=== PATIENT | female | born 1940 | race Caucasian/White ===

== ENCOUNTER → 2017-02-27 | Outpatient (CLI) | payer MEDICARE, OTHER ==
[~2017-02-27] MED LIST: ACIP20TA19 PO; ALBU1AER INH; ALPR0.25 PO; ASPI81TA82 PO; ATEN-102 PO; COZA50TA PO; HYDR12.56 PO; LEXA10TA PO; LYRI50CA2 PO; MAGN500T4 PO; MONT5CHW2 CHEW; NAPR220T95 PO; PERC10TA27 PO; SIMV20 PO; ZOLP10TA3 PO
[2017-02-27 11:58] LABS: ANION GAP 8 MEQ/L (5-15); AST (GOT) 21 U/L (15-37); BLOOD UREA NITROGEN 24 MG/DL (7-18); CHLORIDE 101 MEQ/L (98-107); GLOMERULAR FILTRATION RATE 47 ML/MIN (>89); GLUCOSE,FASTING 85 MG/DL (74-99); POTASSIUM 4.3 MEQ/L (3.5-5.1); SODIUM (NA) 137 MEQ/L (136-145)
[2017-02-27 12:02] LABS: ALKALINE PHOSPHATASE 79 U/L (45-117); ALT (GPT) 19 U/L (10-53); HDL CHOLESTEROL 46.2 MG/DL (40.0-60.0); LDL CHOLESTEROL 59 MG/DL (0-99); LDL CHOLESTEROL DIRECT 65 MG/DL (0-99); TOTAL BILIRUBIN ADULT 0.3 MG/DL (0.2-1.0)
[2017-02-27 12:06] LABS: AUTOMATED NEUTROPHIL # 5.6 TH/MM3 (1.8-7.7); BASOPHIL # 0.1 TH/MM3 (0-0.2); BASOPHIL % 0.9 % (0.0-2.0); EOSINOPHIL # 0.3 TH/MM3 (0-0.4); EOSINOPHIL % 3.8 % (0.0-4.0); HEMATOCRIT 34.6 % (35.0-46.0); HEMO FLAGS DIFF FINAL; LYMPH % 9.8 % (9.0-44.0); LYMPHOCYTE # 0.7 TH/MM3 (1.0-4.8); MEAN CELL VOLUME 86.5 FL (80.0-100.0); MEAN CORPUSCULAR HEMOGLOBIN 28.4 PG (27.0-34.0); MEAN CORPUSCULAR HGB CONC 32.9 % (32.0-36.0); MONO % 10.7 % (0.0-8.0); NEUT % 74.8 % (16.0-70.0); PLATELET COUNT 264 TH/MM3 (150-450); RED CELL DISTRIBUTION WIDTH 16.5 % (11.6-17.2); WHITE BLOOD COUNT 7.5 TH/MM3 (4.0-11.0)
== END ==
LOC: PLAB 08:01
PROVIDERS: ATTEND Family Medicine
DX: E78.5 Hyperlipidemia, unspecified (principal); N18.3 Chronic kidney disease, stage 3 (moderate); I95.9 Hypotension, unspecified
CPT/HCPCS: 36415; 80053; 80061; 82088; 82306; 82533; 83721; 83970; 85025

== ENCOUNTER 2017-08-05 23:16 | Emergency (ER) | payer MEDICARE, OTHER ==
[~2017-08-05] VITALS: Ht 160 cm; Wt 75.0 kg
[2017-08-05 23:21] VITALS: BP 238/111; PULSE 69; RESP 16; TEMP 98.4; O2SAT 96
--- NOTE | 2017-08-05 23:57 | PD ---
HPI Chief Complaint: Complaint Time Seen by Provider: 23:44 Travel History International Travel<30 days: No Contact w/Intl Traveler<30days: No Traveled to known affect area: No History of Present Illness HPI The patient is a 77 year old female who presents to the [facility] emergency department with a history of awakening this morning reportedly not feeling well with cough and congestion. The patient reports that she was scheduled to have a procedure to have a brow lift done on the left eyebrow. She called the office and asked if they still wanted to continue to have the procedure done and they reportedly did. The patient reports that she has had coughing congestion for the last 2 weeks. She denies having any fevers. She reports that the cough is dry in character. She reports that the nasal discharge is clear in color. She reports that during the procedure she was noted to be hypertensive. They thought that it may be related to anxiety over the procedure being done. She continue to monitor her blood pressure when she got home and it continued to go up. She reports that it went up as high as 2: 30 systolic. The patient reports that she is on atenolol twice a day. She forgot to take the morning dose. She did take 50 mg at 3 PM. She reports that previously she was on losartan, however this was discontinued 6 months ago as her blood pressure was doing well. She reports that her primary care physician is Dr. Merchant. The patient also incidentally reports that recently she had symptoms of a urinary tract infection and was confirmed with [id number] testing. She reports that she has a prescription for ciprofloxacin on hold at the pharmacy and she did get the ciprofloxacin filled and took it twice a day for 10 days. She completed the course yesterday. She reports that in spite of this today she continues to have urinary urgency and frequency. She denies having any dysuria. The patient reports that she has nausea today. She denies having any vomiting. The patient denies having any fevers or chills or age she denies having any neck pain, chest pain, shortness of breath, headache, diarrhea , numbness or tingling to her extremities, or weakness of her extremities. [facility] Past Medical History Narrative Medical The patient's past medical history is significant for hypertension, hyperlipidemia, asthma, osteoarthritis, history of a pulmonary embolism in 2009 , history of right breast ductal carcinoma, history of acid reflux. Arthritis: Yes Asthma: Yes Blood Disorders: No Heart Rhythm Problems: Yes Cancer: Yes (BILATERAL BREAST ) Cardiovascular Problems: No High Cholesterol: Yes Chemotherapy: No Chest Pain: No Congestive Heart Failure: No COPD: No Cerebrovascular Accident: No Diabetes: No Diminished Hearing: No Endocrine: No Gastrointestinal Disorders: Yes GERD: Yes Genitourinary: No Headaches: No Hepatitis: No Hiatal Hernia: No Hypertension: Yes Immune Disorder: No Medical other: Yes (GERD) Musculoskeletal: Yes (arthritis back lumbar portion) Neurologic: No Psychiatric: No Reproductive: No Respiratory: Yes (PE-2009 ) Migraines: No Myocardial Infarction: No Radiation Therapy: Yes Seizures: No Sleep Apnea: Yes (minor) Thyroid Disease: No Ulcer: No Tetanus Vaccination: Unknown Influenza Vaccination: Yes Dilation and Curettage (D&C): Yes Past Surgical History Narrative Surgical The patient's past surgical history is significant for right breast lumpectomy, left eyebrow lift, lumbar spine surgery, colectomy with colostomy placement and then colostomy reversal. Abdominal Surgery: Yes (COLECTOMY, COLOSTOMY, COLOS. REVERSAL) AICD: No Appendectomy: No Body Medical Devices: SCREWS & RODS IN BACK LUMBAR SPINE Cardiac Surgery: No Cholecystectomy: No Ear Surgery: No Eye Surgery: Yes (CATARACT EXTRACTION WITH LENS IMPLANT, [place] ) Genitourinary Surgery: No Gynecologic Surgery: Yes Hysterectomy: Yes Joint Replacement: No Neurologic Surgery: Yes (RADIO NERVE BLOCK) Oral Surgery: Yes (T & A) Pacemaker: No Thoracic Surgery: Yes (3 LUMPECTOMY) Tonsillectomy: Yes (T & A) Other Surgery: Yes (LUMPECTOMY [place] BREASTS, medtronic pain device left abdomen) Social History Alcohol Use: Yes (ONE DRINK PER NIGHT) Tobacco Use: No (2003 quit) Substance Use: No Allergies-Medications (Allergen,Severity, Reaction): Coded Allergies: atorvastatin (Unverified Allergy, Severe, MUSCLE ACHES, 04/22/17) codeine (Unverified Allergy, Severe, itching, 04/22/17) Sulfa (Sulfonamide Antibiotics) (Unverified Allergy, Intermediate, LIP SWELLING, 04/22/17) morphine (Unverified Allergy, Intermediate, HALLUCINATION, 04/22/17) denies levofloxacin (Unverified Adverse Reaction, Severe, Restlessness, 04/22/17) PT STATES IRRITATED ACHILLES HEEL AND DIFFICULTY PUTTING FOOT DOWN Reported Meds & Prescriptions Reported Meds & Active Scripts Active Losartan (Losartan Potassium) 50 Mg Tab 50 Mg PO DAILY Keflex (Cephalexin) 500 Mg Capsule 500 Mg PO Q8H Reported Aleve (Naproxen Sodium) 220 Mg Tab 220 Mg PO BID PRN Percocet 10-325 mg (Oxycodone-Acetaminophen 10-325 mg) Oxycodone 10/325 Acetaminophen Tab 1 Tab PO Q6H Proair Hfa (Albuterol Sulfate) 8.5 Gm Aero 1 Puff INH Q6H PRN * SHAKE WELL BEFORE USE * Hydrochlorothiazide (Miscellaneous Medication) 12.5 Mg Tab 12.5 Mg PO DAILY Singulair (Montelukast Sodium) 5 Mg Chw 10 Mg CHEW HS Alprazolam 0.25 Mg Tab 0.25 Mg PO TID Atenolol 50 Mg Tab 75 Mg PO DAILY Aciphex (Rabeprazole Sodium) 20MG Tab 20 Mg PO DAILY Simvastatin 20 mg (Simvastatin) 20 Mg Tab 1 Tab PO HS Magnesium 500 Mg Tab 400 Mg PO DAILY Aspir-81 (Aspirin) 81 Mg Tab 81 Mg PO DAILY Zolpidem Tartrate 10 Mg Tab 10 Mg PO HS PRN Lexapro (Escitalopram Oxalate) 10 Mg Tab 10 Mg PO DAILY Lyrica (Pregabalin) 50 Mg Cap 100 Mg PO BID Review of Systems Except as stated in HPI: all other systems reviewed are Neg General / Constitutional: No: Fever Eyes: No: Visual changes HENT: Positive: Congestion, No: Headaches Cardiovascular: No: Chest Pain or Discomfort Respiratory: Positive: Cough, No: Shortness of Breath Gastrointestinal: Positive: Nausea, No: Vomiting, Diarrhea, Abdominal Pain Genitourinary: No: Dysuria Musculoskeletal: No: Pain Skin: No Rash Neurologic: No: Weakness, Focal Abnormalities, Change in Mentation, Slurred Speech, Sensory Disturbance Psychiatric: No: Depression Endocrine: No: Polydipsia Hematologic/Lymphatic: No: Easy Bruising Physical Exam Narrative General: The patient is well-developed well-nourished female in no acute distress. Head and Neck exam: Head is normocephalic, with sutures in place along the wound involving the left eyebrow. There are no signs of erythema, edema, or drainage. The wound appears to be in good repair. Eyes: EOMI, pupils are equal round and reactive to light. Nose: Midline septum with pink mucous membranes Mouth: Dentition unremarkable. Moist mucus membranes. Posterior oropharynx is not erythematous. No tonsillar hypertrophy. Uvula midline. Airway patent. Neck: No palpable lymphadenopathy. No nuchal rigidity. No thyromegaly. Cardiovascular: Regular rate and rhythm without murmurs, gallops, or rubs. Lungs: Clear to auscultation bilaterally. No wheezes, rhonchi, or rales. Abdomen: Soft, without tenderness to palpation in all 4 quadrants of the abdomen. No guarding, rebound, or rigidity. Normal bowel sounds are audible. No tenderness on palpation of McBurney's point. Extremities: No clubbing, cyanosis, or edema. 2+ pulses in all 4 extremities. No calf tenderness on palpation. Back: No spinous process tenderness to palpation. No costovertebral angle tenderness to palpation. Neurologic Exam: Cranial nerves 2-12 were intact on exam. Strength is 5/5 in all 4 extremities. No sensory deficits noted. Skin Exam: No rash noted. Intact skin that is warm and dry. Data Data Last Documented VS Vital Signs Date Time Temp Pulse Resp B/P (MAP) Pulse Ox O2 Delivery O2 Flow Rate FiO2 08/06/17 03:08 08/05/17 23:21 98.4 69 16 96 Orders Orders Complete Blood Count With Diff (08/05/17 23:51) Basic Metabolic Panel (Bmp) (08/05/17 23:51) Urinalysis - C+S If Indicated (08/05/17 23:51) Iv Access Insert/Monitor (08/05/17 23:51) Ecg Monitoring (08/05/17 23:51) Oximetry (08/05/17 23:51) Electrocardiogram (08/06/17 00:18) Ct Brain W/O Iv Contrast(Rout) (08/06/17 00:18) Ondansetron Inj (Zofran Inj) (08/06/17 00:30) Urine Culture (08/06/17 00:15) Ceftriaxone Inj (Rocephin Inj) (08/06/17 01:45) Losartan (Cozaar) (08/06/17 02:45) Ed Discharge Order (08/06/17 02:38) Labs Laboratory Tests Test 08/06/17 00:15 White Blood Count 6.2 TH/MM3 Red Blood Count 4.29 MIL/MM3 Hemoglobin 12.7 GM/DL Hematocrit 38.3 % Mean Corpuscular Volume 89.2 FL Mean Corpuscular Hemoglobin 29.6 PG Mean Corpuscular Hemoglobin Concent 33.2 % Red Cell Distribution Width 16.1 % Platelet Count 218 TH/MM3 Mean Platelet Volume 9.2 FL Neutrophils (%) (Auto) 73.0 % Lymphocytes (%) (Auto) 13.3 % Monocytes (%) (Auto) 9.6 % Eosinophils (%) (Auto) 3.2 % Basophils (%) (Auto) 0.9 % Neutrophils # (Auto) 4.6 TH/MM3 Lymphocytes # (Auto) 0.8 TH/MM3 Monocytes # (Auto) 0.6 TH/MM3 Eosinophils # (Auto) 0.2 TH/MM3 Basophils # (Auto) 0.1 TH/MM3 CBC Comment DIFF FINAL Differential Comment Urine Color LIGHT-YELLOW Urine Turbidity CLEAR Urine pH 6.5 Urine Specific [place] 1.009 Urine Protein NEG mg/dL Urine Glucose (UA) NEG mg/dL Urine Ketones NEG mg/dL Urine Occult Blood NEG Urine Nitrite NEG Urine Bilirubin NEG Urine Urobilinogen LESS THAN 2.0 MG/DL Urine Leukocyte Esterase SMALL Urine RBC LESS THAN 1 /hpf Urine WBC 9 /hpf Urine Squamous Epithelial Cells 1 /hpf Urine Transitional Epithelial Cells <1 /hpf Microscopic Urinalysis Comment CULTURE INDICATED Blood Urea Nitrogen 26 MG/DL Creatinine 0.96 MG/DL Random Glucose 96 MG/DL Calcium Level 8.8 MG/DL Sodium Level 139 MEQ/L Potassium Level 4.4 MEQ/L Chloride Level 104 MEQ/L Carbon Dioxide Level 27.7 MEQ/L Anion Gap 7 MEQ/L Estimat Glomerular Filtration Rate 56 ML/MIN [facility] Medical Decision Making Medical Screen Exam Complete: Yes Emergency Medical Condition: Yes Medical Record Reviewed: Yes Differential Diagnosis Intracranial hemorrhage, versus sinusitis, versus viral syndrome, versus urinary tract infection, versus poorly controlled hypertension Narrative Course During the course of the patients emergency department visit, the patients history, examination, and differential diagnosis were reviewed with the patient. The patient was placed on a conveyor monitor with oximetry and frequent blood pressure monitoring. The patient had IV access obtained and blood work sent for analysis. The patient had an ECG done on arrival that shows a sinus bradycardia rate of 59, no acute ST segment elevation or depression. T waves are inverted in lead 3, V1. QRS duration is 89 ms, QTC 434 ms. The patient was initially provided Zofran 4 mg IV. The patient's blood pressure on its own came down to 187 systolic. The patient was given losartan 50 mg by mouth 1. The patients laboratory studies were reviewed and remarkable for urinalysis that showed pyuria. Culture was indicated and ordered. The patient was given Rocephin 1 g IV. White count 6.2, hemoglobin 12.7, platelets 218 with 73 neutrophils, monocytes 9.6, basic metabolic profile is remarkable for BUN of 26 , GFR 56 Radiology studies were reviewed and remarkable for a CT scan of the brain that showed no acute abnormality. The patient will be discharged home with a prescription for Keflex for a urinary tract infection, and losartan. The patient is resting comfortably and feels better, is alert and in no distress. The patients results and examination findings were discussed with the patient. The repeat examination is unremarkable and benign. The history, exam, diagnostic testing, and current condition do not suggest any significant pathology to warrant further testing, continued ED treatment, admission, or surgical evaluation at this point. The vital signs have been stable. The patient does not have uncontrollable pain, intractable vomiting, or other significant symptoms. The patient's condition is stable and appropriate for discharge. The patient will pursue further outpatient evaluation with a primary care physician or other designated or consulting physician as indicated in the discharge instructions. The patient expressed understanding and was agreeable with this plan. Diagnosis Primary Impression: Urinary tract infection Qualified Codes: N30.00 - Acute cystitis without hematuria Additional Impression: Hypertension Qualified Codes: I10 - Essential (primary) hypertension Referrals: Primary Care Physician 2 days Patient Instructions: General Instructions, Hypertension (ED), Urinary Tract Infection in Women (ED) Med/Other Pt SpecificInfo: Prescription(s) given Scripts Losartan (Losartan) 50 Mg Tab 50 MG PO DAILY for Blood Pressure Management, #30 TAB 0 Refills Prov: Christen Duque MD 08/06/17 Cephalexin (Keflex) 500 Mg Capsule 500 MG PO Q8H for Infection, #21 CAP 0 Refills Prov: Christen Duque MD 08/06/17 Disposition: 01 DISCHARGE HOME Condition: Stable Christen Duque MD Aug 05, 2017 23:57
[2017-08-06 00:29] LABS: AUTOMATED NEUTROPHIL # 4.6 TH/MM3 (1.8-7.7); BASOPHIL # 0.1 TH/MM3 (0-0.2); BASOPHIL % 0.9 % (0.0-2.0); EOSINOPHIL # 0.2 TH/MM3 (0-0.4); EOSINOPHIL % 3.2 % (0.0-4.0); HEMATOCRIT 38.3 % (35.0-46.0); HEMO FLAGS DIFF FINAL; LYMPH % 13.3 % (9.0-44.0); LYMPHOCYTE # 0.8 TH/MM3 (1.0-4.8); MEAN CELL VOLUME 89.2 FL (80.0-100.0); MEAN CORPUSCULAR HEMOGLOBIN 29.6 PG (27.0-34.0); MEAN CORPUSCULAR HGB CONC 33.2 % (32.0-36.0); MONO % 9.6 % (0.0-8.0); PLATELET COUNT 218 TH/MM3 (150-450); RED BLOOD COUNT 4.29 MIL/MM3 (4.00-5.30); RED CELL DISTRIBUTION WIDTH 16.1 % (11.6-17.2); WHITE BLOOD COUNT 6.2 TH/MM3 (4.0-11.0)
[2017-08-06] MEDS ORDERED: ONDANSETRON HCL 4 MG/2 ML VIAL IV PUSH ONE (00:30)
[2017-08-06 00:43] LABS: BLOOD, URINE NEG (NEG); COMMENT (UR) CULTURE INDICATED; CULTURE IF INDICATED CULTURE INDICATED; GLUCOSE,URINE NEG (NEG); KETONE, URINE NEG (NEG); NITRITE,URINE NEG (NEG); PH, URINE 6.5 (5.0-8.5); SQUAMOUS EPITHELIAL CELL URINE 1 /hpf (0-5); TRANSITIONAL EPI CELLS, URINE <1 /hpf; URINE COLOR LIGHT-YELLOW (YELLW/STRAW)
[2017-08-06 00:49] LABS: BICARBONATE 27.7 MEQ/L (21.0-32.0); POTASSIUM 4.4 MEQ/L (3.5-5.1)
--- NOTE | 2017-08-06 01:07 | RADRPT ---
EXAM DATE/TIME: 08/06/2017 00:53 [place] COMPARISON: No previous studies available for comparison. INDICATIONS : Cephalgia. RADIATION DOSE: 30.96 CTDIvol (mGy) MEDICAL HISTORY : Hypertension. Carcinoma, breast. SURGICAL HISTORY : None. ENCOUNTER: Initial ACUITY: 1 day PAIN SCALE: 8/10 LOCATION: cranial TECHNIQUE: Multiple contiguous axial images were obtained of the head. Using automated exposure control and adj ustment of the mA and/or kV according to patient size, radiation dose was kept as low as reasonably a chievable to obtain optimal diagnostic quality images. DICOM format image data is available electro nically for review and comparison. FINDINGS: CEREBRUM: The ventricles and cortical sulci are mildly widened. No evidence of midline shift, mass lesion, hem orrhage or acute infarction. No extra-axial fluid collections are seen. POSTERIOR FOSSA: The cerebellum and brainstem are intact. The 4th ventricle is midline. The cerebellopontine angle i s unremarkable. EXTRACRANIAL: The visualized portion of the orbits is intact. SKULL: The calvaria is intact. No evidence of skull fracture. CONCLUSION: 1. No acute abnormality. 2. Atrophy. Clyde Ruiz MD on August 06, 2017 at 1:04 Board Certified Radiologist. This report was verified electronically.
[2017-08-06] MEDS ORDERED: cefTRIAXone INJ 1,000 MG in SODIUM CHLORIDE 0.9% INJ 100 ML IV ONE (01:45)
[2017-08-06 02:26] VITALS: BP 187/85
[2017-08-06] MEDS ORDERED: CEPH-460 PO (02:37)
[2017-08-06] MEDS ORDERED: LOSA50TA PO (02:37)
[2017-08-06] MEDS ORDERED: LOSARTAN 50 MG TAB PO ONE (02:45)
--- NOTE | 2017-08-06 09:27 | EKG ---
Date Performed: 08/06/2017 Time Performed: 01:36:10 PTAGE: 77 years EKG: SINUS BRADYCARDIA MODERATE VOLTAGE CRITERIA FOR LVH, CONSIDER NORMAL VARIANT BORDERLINE ECG No significant change from prior electrocardiogram. PREVIOUS TRACING : 02/26/2015 13.40 DOCTOR: Víctor Noel Interpretating Date/Time 08/06/2017 09:26:36
== END 2017-08-06 03:08 | disposition home or self-care (01) ==
LOC: NEPC 23:16
DX: N30.00 Acute cystitis without hematuria (principal); I10 Essential (primary) hypertension; R00.1 Bradycardia, unspecified; J45.909 Unspecified asthma, uncomplicated; E78.00 Pure hypercholesterolemia, unspecified; M46.96 Unspecified inflammatory spondylopathy, lumbar region; Z85.3 Personal history of malignant neoplasm of breast; Z86.711 Personal history of pulmonary embolism
CPT/HCPCS: 70450; 80048; 81001; 85025; 87086; 93005; J0696; J2405

== ENCOUNTER → 2017-09-05 | Outpatient (CLI) | payer MEDICARE, OTHER ==
[~2017-09-05] MED LIST changes: +ALBUAER3 INH; +ASPI-516 CHEW; +ATEN50TA PO; +CEPH-460 PO; -COZA50TA PO; +HYDR12.57 PO; +LOSA50TA PO; +LYRI50CA PO; +MAGN400T2 PO; +MONT10TA2 PO; +NAPR250T4 PO; +SIMV20TA PO
== END ==
LOC: CLAB 12:34
PROVIDERS: ATTEND Urology
DX: N39.0 Urinary tract infection, site not specified (principal); B96.20 Unspecified Escherichia coli [E. coli] as the cause of diseases classified elsewhere
CPT/HCPCS: 87077; 87086; 87186

== ENCOUNTER 2017-09-12 12:02 | Observation (INO) | payer MEDICARE, OTHER ==
[~2017-09-12] VITALS: Ht 162.6 cm; Wt 72.0 kg
[~2017-09-12 12:02] MED LIST changes: -ALBUAER3 INH; -ASPI-516 CHEW; -ATEN50TA PO; -HYDR12.57 PO; -LYRI50CA PO; -MAGN400T2 PO; -MONT10TA2 PO; -NAPR250T4 PO; -SIMV20TA PO
[2017-09-12 12:14] VITALS: BP 117/61; PULSE 54; RESP 21; TEMP 98.2; O2SAT 91
[2017-09-12] MEDS ORDERED: ALPR0.25 PO (12:21)
[2017-09-12] MEDS ORDERED: ATEN50TA PO (12:21)
[2017-09-12] MEDS ORDERED: ALBUAER3 INH (12:21)
[2017-09-12] MEDS ORDERED: ASPI-516 CHEW (12:21)
[2017-09-12] MEDS ORDERED: LYRI50CA PO (12:25)
[2017-09-12] MEDS ORDERED: MAGN400T2 PO (12:25)
[2017-09-12] MEDS ORDERED: MONT10TA2 PO (12:25)
[2017-09-12] MEDS ORDERED: HYDR12.57 PO (12:25)
[2017-09-12] MEDS ORDERED: ZOLP10TA3 PO (12:25)
[2017-09-12] MEDS ORDERED: ACIP20TA19 PO (12:25)
[2017-09-12] MEDS ORDERED: SIMV20TA PO (12:25)
[2017-09-12] MEDS ORDERED: LEXA10TA PO (12:25)
[2017-09-12] MEDS ORDERED: NAPR250T4 PO (12:25)
--- NOTE | 2017-09-12 12:28 | PD ---
HPI Chief Complaint: Altered Mental Status Time Seen by Provider: 12:17 Travel History International Travel<30 days: No Contact w/Intl Traveler<30days: No Traveled to known affect area: No History of Present Illness HPI 77yo F with PMH of HTN, HLD, asthma, PE 2009, right breast ductal carcinoma was brought in by for altered mental status today. As per , she went to bed around 11pm and was normal. When she woke up at 9:45am, she seemed confused. Said she has been confuse when she wakes up at times but never lasts more than 10 minutes. Also with slurred speech that is not her normal when she woke up. Pt has been taking medication for flu like symptoms and is on antibiotics for UTI. cannot remember name of antibiotics. Denies any fever, chest pain, sob, n/v, abdominal pain. Pt usually walks and today seems to have some bilateral lower extremity weakness and has not tried to walk her. PFSH Past Medical History Arthritis: Yes Asthma: Yes Blood Disorders: No Heart Rhythm Problems: Yes Cancer: Yes (BILATERAL BREAST ) Cardiovascular Problems: No High Cholesterol: Yes Chemotherapy: No Chest Pain: No Congestive Heart Failure: No COPD: Yes Cerebrovascular Accident: No Diabetes: No Diminished Hearing: No Endocrine: No Gastrointestinal Disorders: Yes GERD: Yes Genitourinary: No Headaches: No Hepatitis: No Hiatal Hernia: No Hypertension: Yes Immune Disorder: No Musculoskeletal: Yes (arthritis back lumbar portion) Neurologic: No Psychiatric: No Reproductive: No Respiratory: Yes (Copd) Migraines: No Myocardial Infarction: No Radiation Therapy: Yes Seizures: No Sleep Apnea: Yes (minor) Thyroid Disease: No Ulcer: No Dilation and Curettage (D&C): Yes Past Surgical History Abdominal Surgery: Yes (COLECTOMY, COLOSTOMY, COLOS. REVERSAL) AICD: No Appendectomy: No Body Medical Devices: SCREWS & RODS IN BACK LUMBAR SPINE Cardiac Surgery: No Cholecystectomy: No Ear Surgery: No Eye Surgery: Yes (CATARACT EXTRACTION WITH LENS IMPLANT, [place] ) Genitourinary Surgery: No Gynecologic Surgery: Yes Hysterectomy: Yes Joint Replacement: No Neurologic Surgery: Yes (RADIO NERVE BLOCK) Oral Surgery: Yes (T & A) Pacemaker: No Thoracic Surgery: Yes (3 LUMPECTOMY) Tonsillectomy: Yes (T & A) Other Surgery: Yes (LUMPECTOMY [place] BREASTS, medtronic pain device left abdomen) Social History Alcohol Use: Yes (ONE DRINK PER NIGHT) Tobacco Use: No (2004 quit) Substance Use: No Allergies-Medications (Allergen,Severity, Reaction): Coded Allergies: atorvastatin (Unverified Allergy, Severe, MUSCLE ACHES, 09/12/17) codeine (Unverified Allergy, Severe, itching, 09/12/17) Sulfa (Sulfonamide Antibiotics) (Unverified Allergy, Intermediate, LIP SWELLING, 09/12/17) morphine (Unverified Allergy, Intermediate, HALLUCINATION, 09/12/17) denies levofloxacin (Unverified Adverse Reaction, Severe, Restlessness, 09/12/17) PT STATES IRRITATED ACHILLES HEEL AND DIFFICULTY PUTTING FOOT DOWN Reported Meds & Prescriptions Reported Meds & Active Scripts Active Losartan (Losartan Potassium) 50 Mg Tab 50 Mg PO DAILY Keflex (Cephalexin) 500 Mg Capsule 500 Mg PO Q8H Reported Zolpidem (Zolpidem Tartrate) 10 Mg Tab 10 Mg PO HS PRN Simvastatin 20 Mg Tab 20 Mg PO DAILY Aciphex (Rabeprazole Sodium) 20 Mg Tab 20 Mg PO DAILY Lyrica (Pregabalin) 50 Mg Cap 50 Mg PO BID Naproxen 250 Mg Tab 220 Mg PO BID Singulair (Montelukast Sodium) 10 Mg Tab 10 Mg PO HS Hydrochlorothiazide 12.5 Mg Cap 12.5 Mg PO DAILY Magnesium Oxide 400 Mg Tab 400 Mg PO DAILY Lexapro (Escitalopram Oxalate) 10 Mg Tab 10 Mg PO DAILY Atenolol 50 Mg Tab 75 Mg PO DAILY Aspirin 81 Mg Chew 81 Mg CHEW DAILY Alprazolam 0.25 Mg Tab 0.25 Mg PO TID PRN Proair Hfa 8.5 GM Inh (Albuterol Sulfate) 90 Mcg/Act Aer 1 Puff INH Q4H PRN 108 mcg/actuation Review of Systems Except as stated in HPI: all other systems reviewed are Neg Physical Exam Narrative GENERAL: 77yo F in mild distress. SKIN: Focused skin assessment warm/dry. HEAD: Atraumatic. Normocephalic. EYES: Pupils equal and round at 3mm bilaterally. No scleral icterus. No injection or drainage. ENT: No nasal bleeding or discharge. Mucous membranes pink and moist. NECK: Trachea midline. No JVD. CARDIOVASCULAR: Regular rate and rhythm. No murmur appreciated. RESPIRATORY: No accessory muscle use. End expiratory wheezing bilaterally. GASTROINTESTINAL: Abdomen soft, non-tender, nondistended. MUSCULOSKELETAL: No obvious deformities. No clubbing. No cyanosis. No edema. NEUROLOGICAL: Awake and alert. CNII-XII grossly intact. +Mild dysarthria. Bilateral lower extremity 4/5. Bilateral upper extremity 5/5 muscle strength. Sensation intact. Data Data Last Documented VS Vital Signs Date Time Temp Pulse Resp B/P (MAP) Pulse Ox O2 Delivery O2 Flow Rate FiO2 09/12/17 15:03 67 18 128/68 (88) 96 09/12/17 12:55 Nasal Cannula 2.00 09/12/17 12:14 98.2 Orders Orders Electrocardiogram (09/12/17 12:17) Ammonia (09/12/17 12:17) Complete Blood Count With Diff (09/12/17 12:17) Comprehensive Metabolic Panel (09/12/17 12:17) Prothrombin Time / Inr (Pt) (09/12/17 12:17) Act Partial Throm Time (Ptt) (09/12/17 12:17) Troponin I (09/12/17 12:17) Thyroid Stimulating Hormone (09/12/17 12:17) Urinalysis - C+S If Indicated (09/12/17 12:17) Lactic Acid Sepsis Protocol (09/12/17 12:17) Chest, Single Ap (09/12/17 12:17) Ct Brain W/O Iv Contrast(Rout) (09/12/17 12:17) Blood Glucose (09/12/17 12:17) Ecg Monitoring (09/12/17 12:17) Iv Access Insert/Monitor (09/12/17 12:17) Oximetry (09/12/17 12:17) Sodium Chloride 0.9% Flush (Ns Flush) (09/12/17 12:30) Alcohol (Ethanol) (09/12/17 12:17) Tylenol (Acetaminophen) (09/12/17 12:17) Salicylates (Aspirin) (09/12/17 12:17) Sodium Chlorid 0.9% 500 Ml Inj (Ns 500 M (09/12/17 14:30) Admit Order (Ed Use Only) (09/12/17 15:04) Labs Laboratory Tests Test 09/12/17 12:45 1/5/18 12:55 White Blood Count 10.2 TH/MM3 Red Blood Count 4.32 MIL/MM3 Hemoglobin 12.7 GM/DL Hematocrit 38.8 % Mean Corpuscular Volume 89.7 FL Mean Corpuscular Hemoglobin 29.3 PG Mean Corpuscular Hemoglobin Concent 32.7 % Red Cell Distribution Width 16.0 % Platelet Count 250 TH/MM3 Mean Platelet Volume 9.7 FL Neutrophils (%) (Auto) 82.5 % Lymphocytes (%) (Auto) 6.0 % Monocytes (%) (Auto) 9.4 % Eosinophils (%) (Auto) 1.9 % Basophils (%) (Auto) 0.2 % Neutrophils # (Auto) 8.4 TH/MM3 Lymphocytes # (Auto) 0.6 TH/MM3 Monocytes # (Auto) 1.0 TH/MM3 Eosinophils # (Auto) 0.2 TH/MM3 Basophils # (Auto) 0.0 TH/MM3 CBC Comment DIFF FINAL Differential Comment Prothrombin Time 10.0 SEC Prothromb Time International Ratio 1.0 RATIO Activated Partial Thromboplast Time 25.1 SEC Blood Urea Nitrogen 44 MG/DL Creatinine 1.32 MG/DL Random Glucose 93 MG/DL Total Protein 7.4 GM/DL Albumin 3.2 GM/DL Calcium Level 8.5 MG/DL Alkaline Phosphatase 74 U/L Aspartate Amino Transf (AST/SGOT) 29 U/L Alanine Aminotransferase (ALT/SGPT) 26 U/L Total Bilirubin 0.8 MG/DL Sodium Level 133 MEQ/L Potassium Level 5.4 MEQ/L Chloride Level 100 MEQ/L Carbon Dioxide Level 28.6 MEQ/L Anion Gap 4 MEQ/L Estimat Glomerular Filtration Rate 39 ML/MIN Lactic Acid Level 0.8 mmol/L Ammonia 26 MCMOL/L Troponin I LESS THAN 0.02 NG/ML Thyroid Stimulating Hormone 3rd Gen 1.500 uIU/ML Salicylates Level LESS THAN 1.7 MG/DL Acetaminophen Level LESS THAN 2.0 MCG/ML Ethyl Alcohol Level LESS THAN 3 MG/DL Urine Color YELLOW Urine Turbidity CLEAR Urine pH 5.0 Urine Specific [place] 1.012 Urine Protein NEG mg/dL Urine Glucose (UA) NEG mg/dL Urine Ketones NEG mg/dL Urine Occult Blood NEG Urine Nitrite NEG Urine Bilirubin NEG Urine Urobilinogen LESS THAN 2.0 MG/DL Urine Leukocyte Esterase NEG Urine WBC LESS THAN 1 /hpf Urine Hyaline Casts 1 /lpf Urine Mucus FEW /lpf Microscopic Urinalysis Comment CATH-CULT NOT IND MDM Medical Decision Making Medical Screen Exam Complete: Yes Emergency Medical Condition: Yes Differential Diagnosis CVA vs. ICH vs. UTI vs. electrolyte abnormality vs. medication effects Narrative Course 77yo F was brought in by for altered mental status today. Labs reivewed , no leukocytosis. BUN/creatinine mildly elevated. K mildly elevated at 5.4. UA negative. CXR negative. CT brain negative. said pt is still not back to baseline. This could certainly be medication related but cant rule out CVA. Diagnosis Primary Impression: TIA (transient ischemic attack) Qualified Codes: G45.8 - Other transient cerebral ischemic attacks and related syndromes Admitting Information Admitting Physician Requests: Ayaka Levine DO Sep 12, 2017 12:28
[2017-09-12] MEDS ORDERED: SODIUM CHLORIDE 0.9% FLUSH 10 ML FLUSH IV FLUSH PRN ×3 (12:30→15:15)
[2017-09-12 13:08] LABS: AUTOMATED NEUTROPHIL # 8.4 TH/MM3 (1.8-7.7); BASOPHIL % 0.2 % (0.0-2.0); EOSINOPHIL # 0.2 TH/MM3 (0-0.4); EOSINOPHIL % 1.9 % (0.0-4.0); HEMATOCRIT 38.8 % (35.0-46.0); HEMOGLOBIN 12.7 GM/DL (11.6-15.3); LYMPHOCYTE # 0.6 TH/MM3 (1.0-4.8); MEAN CELL VOLUME 89.7 FL (80.0-100.0); MEAN CORPUSCULAR HEMOGLOBIN 29.3 PG (27.0-34.0); MEAN CORPUSCULAR HGB CONC 32.7 % (32.0-36.0); MEAN PLATELET VOLUME 9.7 FL (7.0-11.0); MONO % 9.4 % (0.0-8.0); NEUT % 82.5 % (16.0-70.0); PLATELET COUNT 250 TH/MM3 (150-450); RED BLOOD COUNT 4.32 MIL/MM3 (4.00-5.30); WHITE BLOOD COUNT 10.2 TH/MM3 (4.0-11.0)
[2017-09-12 13:25] LABS: BILIRUBIN, URINE NEG (NEG); BLOOD, URINE NEG (NEG); GLUCOSE,URINE NEG (NEG); HYALINE CAST, URINE 1 /lpf (RARE); KETONE, URINE NEG (NEG); MUCUS URINE FEW /lpf (OCC); NITRITE,URINE NEG (NEG); URINE COLOR YELLOW (YELLW/STRAW); URINE LEUKOCYTE ESTERASE NEG (NEG)
--- NOTE | 2017-09-12 13:30 | RADRPT ---
EXAM DATE/TIME: 09/12/2017 13:06 [facility] COMPARISON: CHEST SINGLE AP, February 26, 2015, 14:13. INDICATIONS : Altered mental status this morning, short of breath, cold symptoms MEDICAL HISTORY : Chronic obstructive pulmonary disease. SURGICAL HISTORY : spinal stimulator ENCOUNTER: Initial ACUITY: 3 days PAIN SCORE: 0/10 LOCATION: Bilateral chest FINDINGS: The heart and mediastinal structures are stable. The pulmonary vascular pattern is normal. The lungs are clear. There is a stable calcified granuloma within the left lower lung field. Degenerative pendleton es and scoliosis of the thoraco-lumbar spine are noted. Spinal stimulator leads are noted within the thoracic spine and are stable. Hardware is noted within the lumbar spine. CONCLUSION: No acute cardiopulmonary disease. Jorge Luis Edwards MD on September 12, 2017 at 13:27 Board Certified Radiologist. This report was verified electronically.
--- NOTE | 2017-09-12 13:34 | RADRPT ---
EXAM DATE/TIME: 09/12/2017 13:16 [facility] COMPARISON: CT BRAIN W/O CONTRAST, August 06, 2017, 0:53. INDICATIONS : Altered mental status. Confusion since this morning. RADIATION DOSE: 56.37 CTDIvol (mGy) MEDICAL HISTORY : Hypertension. Chronic obstructive pulmonary disease. Carcinoma, breast. SURGICAL HISTORY : Cholecystectomy. Hysterectomy. ENCOUNTER: Initial ACUITY: 1 day PAIN SCALE: 0/10 LOCATION: cranial TECHNIQUE: Multiple contiguous axial images were obtained of the head. Using automated exposure control and adj ustment of the mA and/or kV according to patient size, radiation dose was kept as low as reasonably a chievable to obtain optimal diagnostic quality images. DICOM format image data is available electro nically for review and comparison. FINDINGS: There is no evidence of acute cortical infarction, acute hemorrhage, mass effect or midline shift. Bi frontal atrophy is present. There is decreased density in the periventricular white matter consistent with small vessel vascular disease not unexpected in a patient of this age. Posterior fossa structur es are unremarkable. CONCLUSION: 1. Bifrontal atrophy. No evidence of acute intracranial pathology. No masses are identified. Rigo Gordillo MD on September 12, 2017 at 13:31 Board Certified Radiologist. This report was verified electronically.
[2017-09-12 13:45] LABS: ACETAMINOPHEN LESS THAN 2.0 MCG/ML (10.0-30.0); ALBUMIN 3.2 GM/DL (3.4-5.0); ALKALINE PHOSPHATASE 74 U/L (45-117); ALT (GPT) 26 U/L (10-53); AST (GOT) 29 U/L (15-37); BICARBONATE 28.6 MEQ/L (21.0-32.0); BLOOD UREA NITROGEN 44 MG/DL (7-18); CALCIUM 8.5 MG/DL (8.5-10.1); CHLORIDE 100 MEQ/L (98-107); CREATININE 1.32 MG/DL (0.50-1.00); GLOMERULAR FILTRATION RATE 39 ML/MIN (>89); GLUCOSE,RANDOM 93 MG/DL (74-106); SODIUM (NA) 133 MEQ/L (136-145); TOTAL BILIRUBIN ADULT 0.8 MG/DL (0.2-1.0); TOTAL PROTEIN 7.4 GM/DL (6.4-8.2); TROPONIN I LESS THAN 0.02 NG/ML (0.02-0.05)
[2017-09-12] MEDS ORDERED: SODIUM CHLORID 0.9% 500 ML INJ 500 ML IV ONE (14:30)
[2017-09-12 15:03] VITALS: BP 128/68; PULSE 67; RESP 18; O2SAT 96
[2017-09-12] MEDS: SODIUM CHLOR 0.9% 1000 ML INJ 1,000 ML IV SCH (15:10)
[2017-09-12] MEDS ORDERED: METOCLOPRAMIDE HCL 10 MG/2 ML VIAL IV PUSH PRN (15:15)
[2017-09-12] MEDS: PRAVASTATIN SOD 40 MG TAB PO SCH (15:15)
[2017-09-12] MEDS: LOSARTAN 50 MG TAB PO SCH (15:15)
[2017-09-12] MEDS: HYDROCHLOROTHIAZIDE 12.5 MG CAP PO SCH (15:15)
[2017-09-12] MEDS: ASPIRIN 81 MG CHEW TAB CHEW SCH (15:15)
[2017-09-12] MEDS ORDERED: ONDANSETRON HCL 4 MG/2 ML VIAL IVP PRN (15:15)
[2017-09-12] MEDS: ATENOLOL 50 MG TAB PO SCH (15:15)
[2017-09-12] MEDS ORDERED: GLUCAGON 1 MG/ML VIAL OTHER PRN (15:15)
[2017-09-12] MEDS ORDERED: LACTULOSE SYRUP 20 GM/30 ML CUP PO PRN (15:15)
[2017-09-12] MEDS ORDERED: SENNOSIDES 8.6 MG TAB PO PRN (15:15)
[2017-09-12] MEDS ORDERED: DEXTROSE 50% IN WATER 50 ML VIAL(D50) IV PUSH PRN (15:15)
[2017-09-12] MEDS: PANTOPRAZOLE SOD 20 MG DELAYED RELEASE TAB PO SCH (15:15)
[2017-09-12] MEDS ORDERED: ALBUTEROL SULFATE 90 MCG/ACT HFA 8 GM INHALER INH PRN (15:15)
[2017-09-12] MEDS: HEPARIN SODIUM - SQ 10,000 UNITS/ML VIAL SQ SCH (15:15)
[2017-09-12] MEDS ORDERED: ACETAMINOPHEN 325 MG TAB PO PRN ×2 (15:15)
[2017-09-12] MEDS ORDERED: BISACODYL 10 MG SUPP RECTAL PRN (15:15)
[2017-09-12] MEDS ORDERED: MAGNESIUM HYDROXIDE SUSP 30 ML CUP PO PRN (15:15)
[2017-09-12] MEDS ORDERED: traMADol HCL 50 MG TAB PO PRN ×2 (15:15)
[2017-09-12] MEDS ORDERED: ALPRAZolam 0.25 MG TAB PO PRN (15:15)
[2017-09-12] MEDS: MAGNESIUM OXIDE 400 MG TAB PO SCH (15:15)
[2017-09-12] MEDS ORDERED: NALOXONE HCL 0.4 MG/ML AMP IV PUSH PRN (15:15)
[2017-09-12] MEDS: ESCITALOPRAM OXALATE 10 MG TAB PO SCH (15:15)
--- NOTE | 2017-09-12 15:36 | HHI.HP ---
HPI Service [facility] Primary Care Physician Rigo Fierro MD Admission Diagnosis Possible TIA Diagnoses: Chief Complaint: Altered mental status Travel History International Travel<30 Days: No Contact w/Intl Traveler <30 Da: No Traveled to Known Affected Are: No History of Present Illness PATIENT IS A 77-YEAR-OLD FEMALE. wITH PAST MEDICAL HISTORY OF HYPERTENSION, HYPERLIPIDEMIA, ASTHMA, copd, HISTORY OF PULMONARY EMBOLISM IN 2009, WELL RIGHT BREAST DUCTAL CARCINOMA WHO WAS BROUGHT IN BY HER FOR ALTERED MENTAL STATUS TODAY. Patient had recently been suffering for past week or so with cough and congestion that her calls "flu" patient had recently been treated with Keflex for a urinary tract infection and also been given some hydrocodone cough syrup to help with the cough. Yesterday and day before patient took lots of this cough medication. The HID the cough medication last night so she could not take anymore, he is not sure IF she found it or not, BUT she is not at her baseline according to him. She went to bed around 11 PM last night was normal. When she woke up this morning at 945 she seemed confused. He said that sometimes she is confused when she wakes up at times, but never last more than 10 minutes this HAS lasted longer. Patient also has had some slurred speech that is not her normal when she wakes up. Patient has been taking medication for flulike symptoms, SHE was on antibiotic for UTI with Keflex, denies any fever or chest pain, SHE has had some cough and some congestion. SHE DENIES any abdominal pain. Patient usually walks AND today according to the seemed to have some bilateral lower extremity weakness and has not tried to walk her yet. Patient will be observed for altered mental status rule out TIA we'll consult neurology Review of Systems ROS Limitations: Altered Mental Status Constitutional: DENIES: Diaphoretic episodes, Fatigue, Fever, Weight gain, Weight loss, Chills, Dizziness, Change in appetite, Night Sweats Endocrine: DENIES: Abnorml menstrual pattern, Heat/cold intolerance, Polydipsia , Polyuria, Polyphagia Eyes: DENIES: Blurred vision, Diplopia, Eye inflammation, Eye pain, Vision loss , Photosensitivity, Double Vision Ears, nose, mouth, throat: DENIES: Tinnitus, Hearing loss, Vertigo, Nasal discharge, Oral lesions, Throat pain, Hoarseness Respiratory: COMPLAINS OF: Cough, Sputum production, Shortness of breath, DENIES: Apneas, Snoring, Wheezing, Hemoptysis Cardiovascular: DENIES: Chest pain, Palpitations, Syncope, Dyspnea on Exertion , PND, Lower Extremity Edema Gastrointestinal: DENIES: Abdominal pain, Black stools, Bloody stools, Constipation, Diarrhea, Nausea, Vomiting, Difficulty Swallowing Genitourinary: DENIES: Abnormal vaginal bleeding, Dysmenorrhea, Dyspareunia, Sexual dysfunction Musculoskeletal: COMPLAINS OF: Joint pain, Muscle aches, DENIES: Stiffness, Joint Swelling, Back pain, Neck pain Integumentary: DENIES: Abnormal pigmentation, Pruritus, Rash, Nail changes, Breast masses, Breast skin changes Hematologic/lymphatic: DENIES: Bruising, Lymphadenopathy Immunologic/allergic: DENIES: Eczema, Urticaria Neurologic: COMPLAINS OF: Speech Problems, DENIES: Abnormal gait, Headache, Localized weakness, Paresthesias, Seizures, Tremor, Poor Balance Psychiatric: COMPLAINS OF: Anxiety, Confusion, Depression, DENIES: Mood changes Except as stated in HPI: all other systems reviewed are Neg Past Family Social History Past Medical History Osteoarthritis Asthma COPD History of breast cancer Hyperlipidemia GERD Hypertension with recent medication adjustment Arthritis in the back and lumbar portion Sleep apnea History of D&C Past Surgical History History of D&C Colectomy Colostomy Colostomy reversal Screws and rods and back lumbar spine Cataract extraction bilateral eyes PERRLA lids implants Hysterectomy Radial nerve block Tonsils and adenoids 3 breast lumpectomies Lumpectomies bilateral breast [employer] pain device left abdomen Reported Medications Reported Meds & Active Scripts Active Losartan (Losartan Potassium) 50 Mg Tab 50 Mg PO DAILY Keflex (Cephalexin) 500 Mg Capsule 500 Mg PO Q8H Reported Zolpidem (Zolpidem Tartrate) 10 Mg Tab 10 Mg PO HS PRN Simvastatin 20 Mg Tab 20 Mg PO DAILY Aciphex (Rabeprazole Sodium) 20 Mg Tab 20 Mg PO DAILY Lyrica (Pregabalin) 50 Mg Cap 50 Mg PO BID Naproxen 250 Mg Tab 220 Mg PO BID Singulair (Montelukast Sodium) 10 Mg Tab 10 Mg PO HS Hydrochlorothiazide 12.5 Mg Cap 12.5 Mg PO DAILY Magnesium Oxide 400 Mg Tab 400 Mg PO DAILY Lexapro (Escitalopram Oxalate) 10 Mg Tab 10 Mg PO DAILY Atenolol 50 Mg Tab 75 Mg PO DAILY Aspirin 81 Mg Chew 81 Mg CHEW DAILY Alprazolam 0.25 Mg Tab 0.25 Mg PO TID PRN Proair Hfa 8.5 GM Inh (Albuterol Sulfate) 90 Mcg/Act Aer 1 Puff INH Q4H PRN 108 mcg/actuation Allergies: Coded Allergies: atorvastatin (Unverified Allergy, Severe, MUSCLE ACHES, 09/12/17) codeine (Unverified Allergy, Severe, itching, 09/12/17) Sulfa (Sulfonamide Antibiotics) (Unverified Allergy, Intermediate, LIP SWELLING, 09/12/17) morphine (Unverified Allergy, Intermediate, HALLUCINATION, 09/12/17) denies levofloxacin (Unverified Adverse Reaction, Severe, Restlessness, 09/12/17) PT STATES IRRITATED ACHILLES HEEL AND DIFFICULTY PUTTING FOOT DOWN Active Ordered Medications Current Medications Sodium Chloride (NS Flush) 2 ml UNSCH PRN IV FLUSH FLUSH AFTER USING IV ACCESS ; Start 09/12/17 at 12:30 Sodium Chloride 500 ml @ 500 mls/hr BOLUS ONCE IV ; Start 09/12/17 at 14:30; Stop 09/12/17 at 15:29 Albuterol Sulfate (Proair Hfa Inh) 1 puff Q4H PRN INH SHORTNESS OF BREATH; Start 09/12/17 at 15:15 Alprazolam (Xanax) 0.25 mg TID PRN PO ANXIETY; Start 09/12/17 at 15:15 Aspirin (Aspirin Chew) 81 mg DAILY CHEW ; Start 09/12/17 at 15:15 Atenolol (Tenormin) 75 mg DAILY PO ; Start 09/12/17 at 15:15 Escitalopram Oxalate (Lexapro) 10 mg DAILY PO ; Start 09/12/17 at 15:15 Hydrochlorothiazide (Microzide) 12.5 mg DAILY PO ; Start 09/12/17 at 15:15 Losartan Potassium (Cozaar) 50 mg DAILY PO ; Start 09/12/17 at 15:15 Magnesium Oxide (Mag-Ox) 400 mg DAILY PO ; Start 09/12/17 at 15:15 Montelukast Sodium (Singulair) 10 mg HS PO ; Start 09/12/17 at 21:00 Naproxen (Naprosyn) 250 mg BID PO ; Start 09/12/17 at 21:00 Pregabalin (Lyrica) 50 mg BID PO ; Start 09/12/17 at 21:00 Pantoprazole Sodium (Protonix) 20 mg DAILY PO ; Start 09/12/17 at 15:15; Status UNV Non-Formulary Medication 20 mg DAILY PO ; Start 09/12/17 at 15:15; Status UNV Family History Hypertension Social History Has one drink per night Quit smoking in 2003 Denies any illicits Physical Exam Vital Signs Vital Signs Date Time Temp Pulse Resp B/P (MAP) Pulse Ox O2 Delivery O2 Flow Rate FiO2 09/12/17 15:03 67 18 128/68 (88) 96 09/12/17 12:55 98 Nasal Cannula 2.00 09/12/17 12:47 (79) Room Air 09/12/17 12:14 98.2 54 21 117/61 (79) 91 Room Air Physical Exam GENERAL: This is a well-nourished, well-developed patient, in no apparent distress. Slow to answer some confusion a little more lethargic than normal SKIN: No rashes, ecchymoses or lesions. Cool and dry. HEAD: Atraumatic. Normocephalic. No temporal or scalp tenderness. EYES: Pupils equal round and reactive. Extraocular motions intact. No scleral icterus. No injection or drainage. ENT: Nose without bleeding, purulent drainage or septal hematoma. Throat without erythema, tonsillar hypertrophy or exudate. Uvula midline. Airway patent. NECK: Trachea midline. No JVD or lymphadenopathy. Supple, nontender, no meningeal signs. CARDIOVASCULAR: Regular rate and rhythm without murmurs, gallops, or rubs. S1 and S2 no S3 or S4 RESPIRATORY: Clear to auscultation. Breath sounds equal bilaterally. No wheezes , rales Some scattered rhonchi's bilaterally GASTROINTESTINAL: Abdomen soft, non-tender, nondistended. No hepato-splenomegaly , or palpable masses. No guarding. MUSCULOSKELETAL: Extremities without clubbing, cyanosis, or edema. No joint tenderness, effusion, or edema noted. No calf tenderness. Negative Homans sign bilaterally. NEUROLOGICAL: Awake and alert. Cranial nerves II through XII intact. Motor and sensory grossly within normal limits. 4 out of 5 muscle strength in all muscle groups. Sluggish speech. Insight and judgment is limited at this time Mood and behavior somewhat appropriate Laboratory Laboratory Tests Test 09/12/17 12:45 09/12/17 12:55 White Blood Count 10.2 Red Blood Count 4.32 Hemoglobin 12.7 Hematocrit 38.8 Mean Corpuscular Volume 89.7 Mean Corpuscular Hemoglobin 29.3 Mean Corpuscular Hemoglobin Concent 32.7 Red Cell Distribution Width 16.0 Platelet Count 250 Mean Platelet Volume 9.7 Neutrophils (%) (Auto) 82.5 Lymphocytes (%) (Auto) 6.0 Monocytes (%) (Auto) 9.4 Eosinophils (%) (Auto) 1.9 Basophils (%) (Auto) 0.2 Neutrophils # (Auto) 8.4 Lymphocytes # (Auto) 0.6 Monocytes # (Auto) 1.0 Eosinophils # (Auto) 0.2 Basophils # (Auto) 0.0 CBC Comment DIFF FINAL Differential Comment Prothrombin Time 10.0 Prothromb Time International Ratio 1.0 Activated Partial Thromboplast Time 25.1 Blood Urea Nitrogen 44 Creatinine 1.32 Random Glucose 93 Total Protein 7.4 Albumin 3.2 Calcium Level 8.5 Alkaline Phosphatase 74 Aspartate Amino Transf (AST/SGOT) 29 Alanine Aminotransferase (ALT/SGPT) 26 Total Bilirubin 0.8 Sodium Level 133 Potassium Level 5.4 Chloride Level 100 Carbon Dioxide Level 28.6 Anion Gap 4 Estimat Glomerular Filtration Rate 39 Lactic Acid Level 0.8 Ammonia 26 Troponin I LESS THAN 0.02 Thyroid Stimulating Hormone 3rd Gen 1.500 Salicylates Level LESS THAN 1.7 Acetaminophen Level LESS THAN 2.0 Ethyl Alcohol Level LESS THAN 3 Urine Color YELLOW Urine Turbidity CLEAR Urine pH 5.0 Urine Specific [place] 1.012 Urine Protein NEG Urine Glucose (UA) NEG Urine Ketones NEG Urine Occult Blood NEG Urine Nitrite NEG Urine Bilirubin NEG Urine Urobilinogen LESS THAN 2.0 Urine Leukocyte Esterase NEG Urine WBC LESS THAN 1 Urine Hyaline Casts 1 Urine Mucus FEW Microscopic Urinalysis Comment CATH-CULT NOT IND Result Diagram: 09/12/17 1245 09/12/17 1245 Imaging Last Impressions Head CT 09/12/17 1217 Signed Impressions: Service Date/Time: Tuesday, September 12, 2017 13:16 - CONCLUSION: 1. Bifrontal atrophy. No evidence of acute intracranial pathology. No masses are identified. Rigo Gordillo MD Chest X-Ray 09/12/17 1217 Signed Impressions: Service Date/Time: Tuesday, September 12, 2017 13:06 - CONCLUSION: No acute cardiopulmonary disease. MD Katharine Elizalde VTE Risk Assessment Caprini VTE Risk Assessment: Mod/High Risk (score >= 2) Caprini Risk Assessment Model Point Value = 1 Point Value = 2 Point Value = 3 Point Value = 5 Age 41-60 Minor surgery BMI > 25 kg/m2 Swollen legs Varicose veins or History of unexplained or recurrent spontaneous Oral contraceptives or hormone replacement Sepsis (< 1 month) Serious lung disease, including pneumonia (< 1 month) Abnormal pulmonary function Acute myocardial infarction Congestive heart failure (< 1 month) History of inflammatory bowel disease Medical patient at bed rest Age 61-74 Arthroscopic surgery Major open surgery (> 45 min) Laparoscopic surgery (> 45 min) Malignancy Confined to bed (> 72 hours) Immobilizing plaster cast Central venous access Age >= 75 History of VTE Family history of VTE Factor V Leiden Prothrombin [id number] Lupus anticoagulant Anticardiolipin antibodies Elevated serum homocysteine Heparin-induced thrombocytopenia Other congenital or acquired thrombophilia Stroke (< 1 month) Elective arthroplasty Hip, pelvis, or leg fracture Acute spinal cord injury (< 1 month) Prophylaxis Regimen Total Risk Factor Score Risk Level Prophylaxis Regimen 0-1 Low Early ambulation 2 Moderate Order ONE of the following: *Sequential Compression Device (SCD) *Heparin 5000 units SQ BID 3-4 Higher Order ONE of the following medications: *Heparin 5000 units SQ TID *Enoxaparin/Lovenox 40 mg SQ daily (WT < 150 kg, CrCl > 30 mL/min) *Enoxaparin/Lovenox 30 mg SQ daily (WT < 150 kg, CrCl > 10-29 mL/min) *Enoxaparin/Lovenox 30 mg SQ BID (WT < 150 kg, CrCl > 30 mL/min) AND/OR *Sequential Compression Device (SCD) 5 or more Highest Order ONE of the following medications: *Heparin 5000 units SQ TID (Preferred with Epidurals) *Enoxaparin/Lovenox 40 mg SQ daily (WT < 150 kg, CrCl > 30 mL/min) *Enoxaparin/Lovenox 30 mg SQ daily (WT < 150 kg, CrCl > 10-29 mL/min) *Enoxaparin/Lovenox 30 mg SQ BID (WT < 150 kg, CrCl > 30 mL/min) AND *Sequential Compression Device (SCD) Assessment and Plan Problem List: (1) Hyperlipidemia ICD Code: E78.5 - Hyperlipidemia Status: Acute (2) Hypertension ICD Code: I10 - Hypertension Status: Acute (3) Asthma ICD Code: J45.909 - Asthma Status: Acute (4) Chronic renal insufficiency ICD Code: N18.9 - Chronic renal insufficiency Status: Acute Assessment and Plan TIA versus CVA versus medication effect Patient with recent flulike symptoms. Had recently been on some cough suppressant with narcotic in it. Recently been treated with Keflex for urinary tract infection Had been taking lots of the cough suppressant with codeine recently patient states that more than half the bottle disappeared within a 2 day. TIA versus CVA rule out will consult neurology Not sure if patient can have MRIs due to her TENS unit that's implanted Continue on TIA protocol otherwise Aspirin statin, physical therapy, occupational therapy, speech therapy, to eval and treat Echo And carotid Dopplers Hypertension resume her home medications Anxiety continue on her home medications which may be playing a part of this Insomnia on chronic medications at night for sleep may have taken an extra ONE- NOT SURE Generalized weakness we will ask physical therapy and occupational therapy and speech therapy to eval and treat. GERD continue on her home medications Anxiety depression continue on her Lexapro and Xanax Hyperlipidemia continue on her statin Chronic pain continue on her Lyrica and Naprosyn COPD continue on albuterol as needed we'll add duo nebs and Mucinex And incentive spirometry Continue on PPI for the GI prophylaxis DVT prophylaxis with SCDs and Lovenox Code Status FULL CODE Discussed Condition With ER physician, GALLERY MANAGER, patient, and her JeannieAlexnicole De La Cruz DO Sep 12, 2017 15:35
[2017-09-12] MEDS ORDERED: RESP: ALBUTEROL 2.5 MG/IPRATROPIUM 0.5 MG NEB (PRN) NEB (15:45)
[2017-09-12] MEDS: INSULIN ASPART SUPPLEMENTAL SCALE SQ SCH ×2 (17:00→21:10)
--- NOTE | 2017-09-12 19:04 | RADRPT ---
EXAM DATE/TIME: 09/12/2017 18:23 [facility] COMPARISON: No previous studies available for comparison. INDICATIONS : Transient ischemic attack. MEDICAL HISTORY : Hypercholesterolemia. Arthritis. Carcinoma, breast. Numbness, left foot. Irregular heartbeat. HTN. CO PD. Asthma. Sleep apnea. Dyspnea. GERD. UTI. SURGICAL HISTORY : Tonsillectomy. Hysterectomy. Bilateral cataract extraction with lens implant. Adenoidectomy. Radio nerve block. Lumpectomy x3. Colectomy. Colostomy and reversal. D&C. Lumbar stenosis repair. Internal stimulator lumbar. Left eyebrow lift. Blood transfusions. Radiation therapy. ENCOUNTER: Initial ACUITY: 1 day PAIN SCORE: 0/10 LOCATION: Bilateral neck PEAK SYSTOLIC VELOCITIES (cm/sec): ICA/CCA RATIO: Right: 1.6 Left: 1.0 ICA: Right: 137.1 Left: 76.5 CCA: Right: 86.4 Left: 73.2 ECA: Right: 83.1 Left: 65.5 VERTEBRAL: Right: 60.3 antegrade Left: 60.0 antegrade Elevated flow velocities and ICA/CCA ratios have been found to correlate with increased degrees of vessel stenosis, calculated as percentage of diameter relative to a normal segment of distal ICA/CCA FINDINGS: RIGHT CAROTID: No significant stenosis is visualized. The waveforms are within normal limits. LEFT CAROTID: No significant stenosis is visualized. The waveforms are within normal limits. VERTEBRAL ARTERIES: Antegrade flow is seen in both vertebral arteries. MISCELLANEOUS: None. CONCLUSION: 1. Mild visible plaque formation identified bilaterally especially around the carotid bifurcations. N o hemodynamically significant stenosis. Vertebral artery flow antegrade. Yovani Curiel MD on September 12, 2017 at 19:01 Board Certified Radiologist. This report was verified electronically.
--- NOTE | 2017-09-12 20:11 | MB ---
cc: GERBER FONTANEZ MD PHD DATE OF CONSULTATION 09/12/17 REASON FOR CONSULTATION Mental status change. HISTORY OF PRESENT ILLNESS The patient is a 77-year-old woman who has had flu-like symptoms and taking [id number] cold preparations. Yesterday morning, she woke up very confused with slurred speech, difficulty talking and following commands, hallucinating. She took quite a bit of cold medication the night before including antihistamine. She feels better today but not back to baseline. No focal deficits. Denies any weakness, headaches. PAST MEDICAL HISTORY 1. COPD, 2. Breast cancer, 3. Hyperlipidemia, 4. Gastroesophageal reflux disease, 5. Hypertension, 6. Obstructive sleep apnea MEDICATIONS Current 1. Aspirin 325 mg daily. 2. Singulair. 3. Naprosyn 4. Lyrica 5. Latosha-Colace 6. Mucinex 7. Duoneb 8. Pro-Air 9. Xanax, 10. Aspirin. NEUROLOGIC EXAMINATION Blood pressure is 128/68, pulse 67, respiratory rate is 18, temperature 98 degrees. Higher cortical function - she is alert, oriented x3. Follows commands. Speech is fluent at this time. Cranial nerves normal. Motor exam no focal deficit. Reflexes are symmetric. IMAGING STUDIES CT of the brain - atrophy, no acute change present. LABORATORY DATA White count is 10,200, hemoglobin 12.7, hematocrit 38%, platelet count is 250,000. Sodium is 133, potassium 5.4, chloride 100, CO2 28, BUN is 44, creatinine 1.3, GFR is 39, glucose 93, AST 29, ALT 26, TSH 1.5, PT 10, INR one, APTT 25.1. IMPRESSION Mental status change probably encephalopathy related to the cold medications. RECOMMENDATIONS I would like to get an MRI of the brain just to rule out stroke. MD BALDEV Holder/ /6:45 PM /7:40 PM
[2017-09-12 20:26] VITALS: BP 140/63; PULSE 71; RESP 16; TEMP 98.6; O2SAT 95
[2017-09-12] MEDS: DOCUSATE SODIUM 50 MG/SENNA 8.6 MG TAB PO SCH (21:00)
[2017-09-12] MEDS: SODIUM CHLORIDE 0.9% FLUSH 10 ML FLUSH IV FLUSH SCH (21:00)
[2017-09-12 21:47] LABS: TROPONIN I LESS THAN 0.02 NG/ML (0.02-0.05)
[2017-09-12 23:55] VITALS: BP 133/70; PULSE 89; RESP 18; TEMP 100.2; O2SAT 94
[2017-09-13] VITALS (9 sets, daily range): BP systolic 92–134; BP diastolic 54–60; PULSE 55–78; RESP 17–20; TEMP 96–99.1; O2SAT 93–96
[2017-09-13] MEDS: SODIUM CHLOR 0.9% 1000 ML INJ 1,000 ML IV SCH ×3 (01:10→21:10)
[2017-09-13] MEDS: NAPROXEN 250 MG TAB PO SCH ×3 (02:09→23:58)
[2017-09-13] MEDS: SODIUM CHLORIDE 0.9% FLUSH 10 ML FLUSH IV FLUSH SCH ×5 (02:09→22:54)
[2017-09-13] MEDS: guaiFENesin E.R. 600 MG TAB PO SCH ×3 (02:10→23:58)
[2017-09-13] MEDS: MONTELUKAST SODIUM 10 MG TAB PO SCH ×2 (02:10→22:54)
[2017-09-13] MEDS: PREGABALIN 25 MG CAP PO SCH ×3 (02:11→22:54)
[2017-09-13] MEDS: HEPARIN SODIUM - SQ 10,000 UNITS/ML VIAL SQ SCH ×3 (02:11→22:56)
[2017-09-13 03:19] LABS: AUTOMATED NEUTROPHIL # 10.7 TH/MM3 (1.8-7.7); BASOPHIL # 0.1 TH/MM3 (0-0.2); BASOPHIL % 0.5 % (0.0-2.0); EOSINOPHIL # 0.1 TH/MM3 (0-0.4); EOSINOPHIL % 0.6 % (0.0-4.0); HEMATOCRIT 35.4 % (35.0-46.0); HEMOGLOBIN 11.7 GM/DL (11.6-15.3); LYMPH % 3.4 % (9.0-44.0); LYMPHOCYTE # 0.4 TH/MM3 (1.0-4.8); MEAN CELL VOLUME 89.4 FL (80.0-100.0); MEAN CORPUSCULAR HEMOGLOBIN 29.6 PG (27.0-34.0); MEAN CORPUSCULAR HGB CONC 33.1 % (32.0-36.0); MEAN PLATELET VOLUME 9.3 FL (7.0-11.0); MONO % 5.9 % (0.0-8.0); MONOCYTE # 0.7 TH/MM3 (0-0.9); NEUT % 89.6 % (16.0-70.0); PLATELET COUNT 228 TH/MM3 (150-450); RED BLOOD COUNT 3.96 MIL/MM3 (4.00-5.30); RED CELL DISTRIBUTION WIDTH 16.1 % (11.6-17.2); WHITE BLOOD COUNT 11.9 TH/MM3 (4.0-11.0)
[2017-09-13 04:03] LABS: ALBUMIN 3.1 GM/DL (3.4-5.0); ALKALINE PHOSPHATASE 68 U/L (45-117); ALT (GPT) 21 U/L (10-53); AST (GOT) 21 U/L (15-37); BICARBONATE 29.1 MEQ/L (21.0-32.0); BLOOD UREA NITROGEN 32 MG/DL (7-18); CALCIUM 8.2 MG/DL (8.5-10.1); CHLORIDE 105 MEQ/L (98-107); CHOLESTEROL 112 MG/DL (120-200); CHOLESTEROL/ HDL RATIO 2.41 RATIO; CREATININE 0.91 MG/DL (0.50-1.00); FREE T4 1.43 NG/DL (0.76-1.46); GLOMERULAR FILTRATION RATE 60 ML/MIN (>89); GLUCOSE,RANDOM 104 MG/DL (74-106); HDL CHOLESTEROL 46.4 MG/DL (40.0-60.0); LDL CHOLESTEROL 53 MG/DL (0-99); MAGNESIUM 1.7 MG/DL (1.5-2.5); PHOSPHORUS 2.2 MG/DL (2.5-4.9); SODIUM (NA) 139 MEQ/L (136-145); TOTAL BILIRUBIN ADULT 0.6 MG/DL (0.2-1.0); TOTAL PROTEIN 6.9 GM/DL (6.4-8.2); TRIGLYCERIDES 65 MG/DL (42-150); TROPONIN I LESS THAN 0.02 NG/ML (0.02-0.05)
[2017-09-13] MEDS: INSULIN ASPART SUPPLEMENTAL SCALE SQ SCH ×4 (08:00→21:00)
[2017-09-13] MEDS: ESCITALOPRAM OXALATE 10 MG TAB PO SCH (10:43)
[2017-09-13] MEDS: ASPIRIN 81 MG CHEW TAB CHEW SCH (10:43)
[2017-09-13] MEDS: HYDROCHLOROTHIAZIDE 12.5 MG CAP PO SCH (10:43)
[2017-09-13] MEDS: LOSARTAN 50 MG TAB PO SCH (10:44)
[2017-09-13] MEDS: PRAVASTATIN SOD 40 MG TAB PO SCH (10:44)
[2017-09-13] MEDS: MAGNESIUM OXIDE 400 MG TAB PO SCH (10:44)
[2017-09-13] MEDS: ATENOLOL 50 MG TAB PO SCH (10:44)
[2017-09-13] MEDS: DOCUSATE SODIUM 50 MG/SENNA 8.6 MG TAB PO SCH ×2 (10:44→21:00)
[2017-09-13] MEDS: ASPIRIN 325 MG TAB PO SCH (10:45)
[2017-09-13] MEDS: PANTOPRAZOLE SOD 20 MG DELAYED RELEASE TAB PO SCH (10:45)
[2017-09-13 10:53] LABS: HEMOGLOBIN A1C 6.5 % (4.3-6.0)
--- NOTE | 2017-09-13 12:32 | HHI.PR ---
Subjective Remarks in no acute distress. awake, alert and oriented. no new complaints. family at the bedside. Objective Vitals Vital Signs Date Time Temp Pulse Resp B/P (MAP) Pulse Ox O2 Delivery O2 Flow Rate FiO2 09/13/17 08:00 96.3 62 20 105/55 (72) 93 09/13/17 04:10 99.1 78 17 127/60 (82) 95 09/13/17 01:17 Nasal Cannula 2.00 09/12/17 23:55 100.2 89 18 133/70 (91) 94 09/12/17 20:26 98.6 71 16 140/63 (88) 95 09/12/17 16:20 (88) Nasal Cannula 2.00 09/12/17 15:03 67 18 128/68 (88) 96 09/12/17 12:55 98 Nasal Cannula 2.00 09/12/17 12:47 (79) Room Air I/O 09/12/17 09/12/17 09/12/17 09/13/17 09/13/17 09/13/17 07:00 15:00 23:00 07:00 15:00 23:00 Intake Total 500 ml Balance 500 ml Intake IV Total 500 ml # Voids 2 Result Diagram: 09/13/17 0249 09/13/17 0249 Imaging Last Impressions Head CT 09/12/171216 Signed Impressions: Service Date/Time: Tuesday, September 12, 2017 13:16 - CONCLUSION: 1. Bifrontal atrophy. No evidence of acute intracranial pathology. No masses are identified. Rigo Gordillo MD Chest X-Ray 09/12/177 Signed Impressions: Service Date/Time: Tuesday, September 12, 2017 13:06 - CONCLUSION: No acute cardiopulmonary disease. Jorge Luis Edwards MD Carotid Artery Ultrasound 09/12/17 0000 Signed Impressions: Service Date/Time: Tuesday, September 12, 2017 18:23 - CONCLUSION: 1. Mild visible plaque formation identified bilaterally especially around the carotid bifurcations. No hemodynamically significant stenosis. Vertebral artery flow antegrade. Yovani Curiel MD Objective Remarks GENERAL: This is a well-nourished, well-developed patient, in no apparent distress. CARDIOVASCULAR: Regular rate and regular rhythm without murmurs, gallops, or rubs. RESPIRATORY: Clear to auscultation. Breath sounds equal bilaterally. No wheezes , rales, or rhonchi. GASTROINTESTINAL: Abdomen soft, non-tender, nondistended. Normal, active bowel sounds MUSCULOSKELETAL: Extremities without clubbing, cyanosis, or edema. NEURO: Alert & Oriented x4 to person, place, time, situation. Moves all ext x4 Medications and IVs Inpatient Medications Acetaminophen (Tylenol) 650 mg Q6H PRN PO PAIN SCALE 1 TO 2; Start 09/12/17 at 15:15 Albuterol Sulfate (Proair Hfa Inh) 1 puff Q4H PRN INH SHORTNESS OF BREATH; Start 09/12/17 at 15:15 Albuterol/ Ipratropium (Duoneb Neb) 1 ampule Q4HR NEB PRN NEB SHORTNESS OF BREATH; Start 09/12/17 at 15:45 Alprazolam (Xanax) 0.25 mg TID PRN PO ANXIETY; Start 09/12/17 at 15:15 Aspirin (Aspirin Chew) 81 mg DAILY CHEW Last administered on 09/13/17at 10:43; Start 09/12/17 at 15:15 Aspirin (Aspirin) 325 mg DAILY PO Last administered on 09/13/17at 10:45; Start at 09:00 Atenolol (Tenormin) 75 mg DAILY PO Last administered on 09/13/17at 10:44; Start 09/12/17 at 15:15 Bisacodyl (Dulcolax Supp) 10 mg DAILY PRN RECTAL SEVERE CONSITIPATION; Start at 15:15 Dextrose (D50w (Vial) Inj) 50 ml UNSCH PRN IV PUSH HYPOGLYCEMIA-SEE COMMENTS; Start 09/12/17 at 15:15 Escitalopram Oxalate (Lexapro) 10 mg DAILY PO Last administered on 09/13/17at 10: 43; Start 09/12/17 at 15:15 Glucagon (Glucagon Inj) 1 mg UNSCH PRN OTHER HYPOGLYCEMIA-SEE COMMENTS; Start 09/12/17 at 15:15 Guaifenesin (Mucinex Er) 600 mg BID PO Last administered on 09/13/17at 10:43; Start 09/12/17 at 21:00 Heparin Sodium (Porcine) (Heparin Inj) 5,000 units Q12HR SQ Last administered on 09/13/17at 10:45; Start 09/12/17 at 15:15 Hydrochlorothiazide (Microzide) 12.5 mg DAILY PO Last administered on 09/13/17 10:43; Start 09/12/17 at 15:15 Insulin Aspart (NovoLOG SUPPLEMENTAL SCALE) 1 ACHS SQ ; Start 09/12/17 at 17:00 Lactulose (Lactulose Liq) 30 ml DAILY PRN PO SEVERE CONSITIPATION; Start at 15:15 Losartan Potassium (Cozaar) 50 mg DAILY PO Last administered on 09/13/17at 10:44 ; Start 09/12/17 at 15:15 Magnesium Hydroxide (Milk Of Magnesia Liq) 30 ml Q12H PRN PO Mild constipation ; Start 09/12/17 at 15:15 Magnesium Oxide (Mag-Ox) 400 mg DAILY PO Last administered on 09/13/17at 10:44; Start 09/12/17 at 15:15 Metoclopramide HCl (Reglan Inj) 5 mg Q6H PRN IV PUSH NAUSEA OR VOMITING; Start 09/12/17 at 15:15 Montelukast Sodium (Singulair) 10 mg HS PO Last administered on 09/13/17at 02:10 ; Start 09/12/17 at 21:00 Naloxone HCl (Narcan Inj) 0.4 mg UNSCH PRN IV PUSH SEE LABEL COMMENTS; Start at 15:15 Naproxen (Naprosyn) 250 mg BID PO Last administered on 09/13/17at 10:45; Start at 21:00 Ondansetron HCl (Zofran Inj) 4 mg Q6H PRN IVP NAUSEA OR VOMITING; Start at 15:15 Pantoprazole Sodium (Protonix) 20 mg DAILY PO Last administered on 09/13/17at 10: 45; Start 09/12/17 at 15:15 Pravastatin Sodium (Pravachol) 40 mg DAILY PO Last administered on 09/13/17 10: 44; Start 09/12/17 at 15:15 Pregabalin (Lyrica) 50 mg BID PO Last administered on 09/13/17 10:43; Start 09/12/17 at 21:00 Senna/Docusate Sodium (Latosha-Colace) 1 tab BID PO Last administered on 1/6/18at 10:44; Start 09/12/17 at 21:00 Sennosides (Senokot) 17.2 mg Q12H PRN PO Moderate constipation; Start 09/12/17 at 15:15 Sodium Chloride (NS Flush) 2 ml BID IV FLUSH Last administered on 09/13/17at 10: 45; Start 09/12/17 at 21:00 Tramadol HCl (Ultram) 100 mg Q4H PRN PO PAIN SCALE 6 TO 10; Start 09/12/17 at 15 :15 A/P Problem List: (1) Hyperlipidemia ICD Code: E78.5 - Hyperlipidemia Status: Acute (2) Hypertension ICD Code: I10 - Hypertension Status: Acute (3) Asthma ICD Code: J45.909 - Asthma Status: Acute (4) Chronic renal insufficiency ICD Code: N18.9 - Chronic renal insufficiency Status: Acute Assessment and Plan A/P TIA versus CVA versus medication effect Patient with recent flulike symptoms. Had recently been on some cough suppressant with narcotic in it. Recently been treated with Keflex for urinary tract infection Had been taking lots of the cough suppressant with codeine recently patient. states that more than half the bottle disappeared within a 2 day. neurology consult appreciated; MRI brain pending. Hypertension resumed her home medications Anxiety continue on her home medications which may be playing a part of this Insomnia on chronic medications at night for sleep may have taken an extra ONE- NOT SURE Generalized weakness - consulted PT/OT. GERD continue on her home medications Anxiety depression continue on her Lexapro and Xanax Hyperlipidemia continue on her statin Chronic pain continue on her Lyrica and Naprosyn COPD continue on albuterol as needed we'll add duo nebs and Mucinex And incentive spirometry Continue on PPI for the GI prophylaxis DVT prophylaxis with SCDs and Lovenox Discharge Planning dc home- likely tomorrow- pending MRI brain/ PT/OT evaluation. Estrellita Zazueta MD Sep 13, 2017 12:32
--- NOTE | 2017-09-13 12:33 | EKG ---
Date Performed: 09/12/2017 Time Performed: 21:37:09 PTAGE: 77 years EKG: Sinus rhythm NORMAL ECG PREVIOUS TRACING : 09/12/2017 12.18 Since previous tracing, heart rate is somewhat faster; othe rwise, no significant change. DOCTOR: Spencer Aldrich Interpretating Date/Time 09/13/2017 12:33:18
--- NOTE | 2017-09-13 12:33 | EKG ---
Date Performed: 09/12/2017 Time Performed: 12:18:30 PTAGE: 77 years EKG: SINUS BRADYCARDIA BORDERLINE ECG INTERPRETATION BASED ON A DEFAULT AGE OF 38 YEARS PREVIOUS TRACING : 08/06/2017 01.36 Since previous tracing, voltage criteria for LVH is n ow longer met. DOCTOR: Spencer Aldrich Interpretating Date/Time 09/13/2017 12:32:37
--- NOTE | 2017-09-13 14:23 | HHI.PR ---
Review/Management Diagnosis Encephalopathy--resolving. Probably secondary to over the counter cold meds/ antihistamines. Plan follow up MRI brain. If stable ok to dc from [facility] if stable Diagnosis/Plan: Subjective Subjective Comments No acute events reported No headache more alert and feels back to baseline mental status Active Medications Current Medications Medications (Trade) Dose Ordered Sig/Erin Route Start Time Stop Time Status Last Admin (NS Flush) 2 ml UNSCH PRN IV FLUSH 09/12/17 12:30 (Proair Hfa Inh) 1 puff Q4H PRN INH 09/12/17 15:15 (Xanax) 0.25 mg TID PRN PO 09/12/17 15:15 (Aspirin Chew) 81 mg DAILY CHEW 09/12/17 15:15 09/13/17 10:43 (Tenormin) 75 mg DAILY PO 09/12/17 15:15 09/13/17 10:44 (Lexapro) 10 mg DAILY PO 09/12/17 15:15 09/13/17 10:43 (Microzide) 12.5 mg DAILY PO 09/12/17 15:15 09/13/17 10:43 (Cozaar) 50 mg DAILY PO 09/12/17 15:15 09/13/17 10:44 (Mag-Ox) 400 mg DAILY PO 09/12/17 15:15 09/13/17 10:44 (Singulair) 10 mg HS PO 09/12/17 21:00 09/13/17 02:10 (Naprosyn) 250 mg BID PO 09/12/17 21:00 09/13/17 10:45 (Lyrica) 50 mg BID PO 09/12/17 21:00 09/13/17 10:43 (Protonix) 20 mg DAILY PO 09/12/17 15:15 09/13/17 10:45 (Pravachol) 40 mg DAILY PO 09/12/17 15:15 09/13/17 10:44 (NS Flush) 2 ml BID IV FLUSH 09/12/17 21:00 09/13/17 10:43 (NS Flush) 2 ml UNSCH PRN IV FLUSH 09/12/17 15:15 (Aspirin) 325 mg DAILY PO 09/13/17 09:00 09/13/17 10:45 (NovoLOG SUPPLEMENTAL SCALE) 1 ACHS SQ 09/12/17 17:00 (D50w (Vial) Inj) 50 ml UNSCH PRN IV PUSH 09/12/17 15:15 (Glucagon Inj) 1 mg UNSCH PRN OTHER 09/12/17 15:15 (Heparin Inj) 5,000 units Q12HR SQ 09/12/17 15:15 09/13/17 10:45 Sodium Chloride 1,000 ml @ 100 mls/hr Q10H IV 09/12/17 15:10 09/13/17 13:55 (NS Flush) 2 ml UNSCH PRN IV FLUSH 09/12/17 15:15 (NS Flush) 2 ml BID IV FLUSH 09/12/17 21:00 09/13/17 10:45 (Tylenol) 650 mg Q4H PRN PO 09/12/17 15:15 09/13/17 04:24 (Zofran Inj) 4 mg Q6H PRN IVP 09/12/17 15:15 (Reglan Inj) 5 mg Q6H PRN IV PUSH 09/12/17 15:15 (Tylenol) 650 mg Q6H PRN PO 09/12/17 15:15 (Ultram) 50 mg Q4H PRN PO 09/12/17 15:15 (Ultram) 100 mg Q4H PRN PO 09/12/17 15:15 (Narcan Inj) 0.4 mg UNSCH PRN IV PUSH 09/12/17 15:15 (Latosha-Colace) 1 tab BID PO 09/12/17 21:00 09/13/17 10:44 (Milk Of Magnesia Liq) 30 ml Q12H PRN PO 09/12/17 15:15 (Senokot) 17.2 mg Q12H PRN PO 09/12/17 15:15 (Dulcolax Supp) 10 mg DAILY PRN RECTAL 09/12/17 15:15 (Lactulose Liq) 30 ml DAILY PRN PO 09/12/17 15:15 (Mucinex Er) 600 mg BID PO 09/12/17 21:00 09/13/17 10:43 (Duoneb Neb) 1 ampule Q4HR NEB PRN NEB 09/12/17 15:45 Allergies Allergies Coded Allergies atorvastatin (Unverified Allergy, Severe, MUSCLE ACHES, 09/12/17) codeine (Unverified Allergy, Severe, itching, 09/12/17) Sulfa (Sulfonamide Antibiotics) (Unverified Allergy, Intermediate, LIP SWELLING, 09/12/17) morphine (Unverified Allergy, Intermediate, HALLUCINATION, 09/12/17) levofloxacin (Unverified Adverse Reaction, Severe, Restlessness, 09/12/17) Exam I&O / VS Vital Signs Date Time Temp Pulse Resp B/P (MAP) Pulse Ox O2 Delivery O2 Flow Rate FiO2 09/13/17 12:00 96.1 55 20 92/54 (67) 93 09/13/17 08:00 96.3 62 20 105/55 (72) 93 09/13/17 04:10 99.1 78 17 127/60 (82) 95 09/13/17 01:17 Nasal Cannula 2.00 09/12/17 23:55 100.2 89 18 133/70 (91) 94 09/12/17 20:26 98.6 71 16 140/63 (88) 95 09/12/17 16:20 (88) Nasal Cannula 2.00 09/12/17 15:03 67 18 128/68 (88) 96 Exam Comments alert, oriented times 3, speech normal and appropriate. follows commands CN intact MOTOR--no focal deficits Objective Micro and Labs Laboratory Tests Test 09/12/17 21:17 09/13/17 02:49 Total Creatine Kinase 108 99 Troponin I LESS THAN 0.02 LESS THAN 0.02 White Blood Count 11.9 Red Blood Count 3.96 Hemoglobin 11.7 Hematocrit 35.4 Mean Corpuscular Volume 89.4 Mean Corpuscular Hemoglobin 29.6 Mean Corpuscular Hemoglobin Concent 33.1 Red Cell Distribution Width 16.1 Platelet Count 228 Mean Platelet Volume 9.3 Neutrophils (%) (Auto) 89.6 Lymphocytes (%) (Auto) 3.4 Monocytes (%) (Auto) 5.9 Eosinophils (%) (Auto) 0.6 Basophils (%) (Auto) 0.5 Neutrophils # (Auto) 10.7 Lymphocytes # (Auto) 0.4 Monocytes # (Auto) 0.7 Eosinophils # (Auto) 0.1 Basophils # (Auto) 0.1 CBC Comment DIFF FINAL Differential Comment Blood Urea Nitrogen 32 Creatinine 0.91 Random Glucose 104 Total Protein 6.9 Albumin 3.1 Calcium Level 8.2 Phosphorus Level 2.2 Magnesium Level 1.7 Alkaline Phosphatase 68 Aspartate Amino Transf (AST/SGOT) 21 Alanine Aminotransferase (ALT/SGPT) 21 Total Bilirubin 0.6 Sodium Level 139 Potassium Level 5.2 Chloride Level 105 Carbon Dioxide Level 29.1 Anion Gap 5 Estimat Glomerular Filtration Rate 60 Hemoglobin A1c 6.5 Triglycerides Level 65 Cholesterol Level 112 LDL Cholesterol 53 HDL Cholesterol 46.4 Cholesterol/HDL Ratio 2.41 Free Thyroxine 1.43 Thyroid Stimulating Hormone 3rd Gen 0.481 Sandip Dodd MD PhD Sep 13, 2017 14:23
[2017-09-13] MEDS: BENZONATATE 100 MG CAP PO PRN (18:17)
--- NOTE | 2017-09-13 18:35 | ECHRPT ---
Indication: cva/tia CONCLUSIONS Normal left ventricular size. The left ventricular systolic function is low normal with an estimated ejection fraction in the rang e of 50- 55%. [id number] mitral valve regurgitation. No aortic valve regurgitation. No aortic valve stenosis. There is mild tricuspid valve regurgitation. The pulmonary valve is not well visualized. BP: / HR: Rhythm: MEASUREMENTS (Male / Female) Normal Values Technical Quality:Fair 2D ECHO LV Diastolic Diameter PLAX 3.9 cm 4.2 - 5.9 / 3.9 - 5.3 cm LV Systolic Diameter PLAX 3.0 cm IVS Diastolic Thickness 1.1 cm 0.6 - 1.0 / 0.6 - 0.9 cm LVPW Diastolic Thickness 1.1 cm 0.6 - 1.0 / 0.6 - 0.9 cm LV Relative Wall Thickness 0.5 RV Internal Dim ED PLAX 2.4 cm M-MODE Aortic Root Diameter MM 3.9 cm LA Systolic Diameter MM 2.4 cm LA Ao Ratio MM 0.6 AV Cusp Separation MM 1.7 cm FINDINGS LEFT VENTRICLE Normal left ventricular size. The left ventricular systolic function is low normal with an estimated ejection fraction in the rang e of 50- 55%. RIGHT VENTRICLE Normal right ventricular size and systolic function. LEFT ATRIUM The left atrial size is normal. RIGHT ATRIUM The right atrial size is normal. ATRIAL SEPTUM Normal atrial septal thickness without atrial level shunting by limited color doppler interrogation. AORTA The aortic root and proximal ascending aorta are normal in size on limited imaging. MITRAL VALVE Structurally normal mitral valve. [id number] mitral valve regurgitation. AORTIC VALVE Trileaflet aortic valve. No aortic valve regurgitation. No aortic valve stenosis. TRICUSPID VALVE Structurally normal tricuspid valve. There is mild tricuspid valve regurgitation. PULMONARY VALVE The pulmonary valve is not well visualized. VESSELS The inferior vena cava is normal in size. PERICARDIUM No pericardial effusion. Mikey Elizabeth MD, FACC, FSCAI (Electronically Signed) Final Date:13 September 2017 18:35
[2017-09-14] MEDS: BENZONATATE 100 MG CAP PO PRN (02:11)
[2017-09-14 04:13] VITALS: BP 111/59; PULSE 52; RESP 17; TEMP 98.6; O2SAT 97
[2017-09-14] MEDS: SODIUM CHLOR 0.9% 1000 ML INJ 1,000 ML IV SCH (07:56)
[2017-09-14 08:00] VITALS: PULSE 59
[2017-09-14] MEDS: INSULIN ASPART SUPPLEMENTAL SCALE SQ SCH ×2 (08:00→12:00)
[2017-09-14 08:09] VITALS: BP 110/60; PULSE 70; RESP 20; TEMP 98.2; O2SAT 97
--- NOTE | 2017-09-14 09:40 | HHI.PR ---
Subjective Remarks in no acute distress. awake, alert and oriented. no new complaints and wants to go home today. Objective Vitals Vital Signs Date Time Temp Pulse Resp B/P (MAP) Pulse Ox O2 Delivery O2 Flow Rate FiO2 09/14/17 08:09 98.2 70 20 110/60 (77) 97 09/14/17 04:13 98.6 52 17 111/59 (76) 97 09/13/17 20:19 96 09/13/17 20:11 98.0 57 17 134/59 (84) 94 09/13/17 16:00 96.0 57 20 118/57 (77) 93 09/13/17 15:40 56 09/13/17 12:04 56 09/13/17 12:00 96.1 55 20 92/54 (67) 93 I/O 09/13/17 09/13/17 09/13/17 09/14/17 09/14/17 09/14/17 07:00 15:00 23:00 07:00 15:00 23:00 # Voids 2 3 2 1 # Bowel Movements 1 Result Diagram: 09/13/17 0249 09/14/17 0505 Imaging Last Impressions Head CT 09/12/17 1217 Signed Impressions: Service Date/Time: Tuesday, September 12, 2017 13:16 - CONCLUSION: 1. Bifrontal atrophy. No evidence of acute intracranial pathology. No masses are identified. Rigo Gordillo MD Chest X-Ray 09/12/17 1217 Signed Impressions: Service Date/Time: Tuesday, September 12, 2017 13:06 - CONCLUSION: No acute cardiopulmonary disease. Jorge Luis Edwards MD Carotid Artery Ultrasound 09/12/17 0000 Signed Impressions: Service Date/Time: Tuesday, September 12, 2017 18:23 - CONCLUSION: 1. Mild visible plaque formation identified bilaterally especially around the carotid bifurcations. No hemodynamically significant stenosis. Vertebral artery flow antegrade. Yovani Curiel MD Objective Remarks GENERAL: This is a well-nourished, well-developed patient, in no apparent distress. CARDIOVASCULAR: Regular rate and regular rhythm without murmurs, gallops, or rubs. RESPIRATORY: Clear to auscultation. Breath sounds equal bilaterally. No wheezes , rales, or rhonchi. GASTROINTESTINAL: Abdomen soft, non-tender, nondistended. Normal, active bowel sounds MUSCULOSKELETAL: Extremities without clubbing, cyanosis, or edema. NEURO: Alert & Oriented x4 to person, place, time, situation. Moves all ext x4 Medications and IVs Inpatient Medications Acetaminophen (Tylenol) 650 mg Q6H PRN PO PAIN SCALE 1 TO 2; Start 09/12/17 at 15:15 Albuterol Sulfate (Proair Hfa Inh) 1 puff Q4H PRN INH SHORTNESS OF BREATH Last administered on 09/13/17at 23:58; Start 09/12/17 at 15:15 Albuterol/ Ipratropium (Duoneb Neb) 1 ampule Q4HR NEB PRN NEB SHORTNESS OF BREATH; Start 09/12/17 at 15:45 Alprazolam (Xanax) 0.25 mg TID PRN PO ANXIETY; Start 09/12/17 at 15:15 Aspirin (Aspirin Chew) 81 mg DAILY CHEW Last administered on 09/13/17at 10:43; Start 09/12/17 at 15:15 Aspirin (Aspirin) 325 mg DAILY PO Last administered on 09/13/17at 10:45; Start at 09:00 Atenolol (Tenormin) 75 mg DAILY PO Last administered on 09/13/17at 10:44; Start 09/12/17 at 15:15 Benzonatate (Tessalon) 100 mg TID PRN PO COUGH Last administered on 09/14/17at 02 :11; Start 09/13/17 at 17:30 Bisacodyl (Dulcolax Supp) 10 mg DAILY PRN RECTAL SEVERE CONSITIPATION; Start at 15:15 Dextrose (D50w (Vial) Inj) 50 ml UNSCH PRN IV PUSH HYPOGLYCEMIA-SEE COMMENTS; Start 09/12/17 at 15:15 Escitalopram Oxalate (Lexapro) 10 mg DAILY PO Last administered on 09/13/17at 10: 43; Start 09/12/17 at 15:15 Glucagon (Glucagon Inj) 1 mg UNSCH PRN OTHER HYPOGLYCEMIA-SEE COMMENTS; Start 09/12/17 at 15:15 Guaifenesin (Mucinex Er) 600 mg BID PO Last administered on 09/13/17at 23:58; Start 09/12/17 at 21:00 Heparin Sodium (Porcine) (Heparin Inj) 5,000 units Q12HR SQ Last administered on 09/13/17at 22:56; Start 09/12/17 at 15:15 Hydrochlorothiazide (Microzide) 12.5 mg DAILY PO Last administered on 09/13/17 10:43; Start 09/12/17 at 15:15 Insulin Aspart (NovoLOG SUPPLEMENTAL SCALE) 1 ACHS SQ ; Start 09/12/17 at 17:00 Lactulose (Lactulose Liq) 30 ml DAILY PRN PO SEVERE CONSITIPATION; Start at 15:15 Losartan Potassium (Cozaar) 50 mg DAILY PO Last administered on 09/13/17 10:44 ; Start 09/12/17 at 15:15 Magnesium Hydroxide (Milk Of Magnesia Liq) 30 ml Q12H PRN PO Mild constipation ; Start 09/12/17 at 15:15 Magnesium Oxide (Mag-Ox) 400 mg DAILY PO Last administered on 09/13/17 10:44; Start 09/12/17 at 15:15 Metoclopramide HCl (Reglan Inj) 5 mg Q6H PRN IV PUSH NAUSEA OR VOMITING; Start 09/12/17 at 15:15 Montelukast Sodium (Singulair) 10 mg HS PO Last administered on 09/13/17 22:54 ; Start 09/12/17 at 21:00 Naloxone HCl (Narcan Inj) 0.4 mg UNSCH PRN IV PUSH SEE LABEL COMMENTS; Start at 15:15 Naproxen (Naprosyn) 250 mg BID PO Last administered on 09/13/17at 23:58; Start at 21:00 Ondansetron HCl (Zofran Inj) 4 mg Q6H PRN IVP NAUSEA OR VOMITING; Start at 15:15 Pantoprazole Sodium (Protonix) 20 mg DAILY PO Last administered on 09/13/17 10: 45; Start 09/12/17 at 15:15 Pravastatin Sodium (Pravachol) 40 mg DAILY PO Last administered on 09/13/17 10: 44; Start 09/12/17 at 15:15 Pregabalin (Lyrica) 50 mg BID PO Last administered on 09/13/17at 22:54; Start 1/ 5/18 at 21:00 Senna/Docusate Sodium (Latosha-Colace) 1 tab BID PO Last administered on 09/13/17at 10:44; Start 09/12/17 at 21:00 Sennosides (Senokot) 17.2 mg Q12H PRN PO Moderate constipation; Start 09/12/17 at 15:15 Sodium Chloride (NS Flush) 2 ml BID IV FLUSH Last administered on 09/13/17at 10: 45; Start 09/12/17 at 21:00 Tramadol HCl (Ultram) 100 mg Q4H PRN PO PAIN SCALE 6 TO 10; Start 09/12/17 at 15 :15 A/P Problem List: (1) Hyperlipidemia ICD Code: E78.5 - Hyperlipidemia Status: Acute (2) Hypertension ICD Code: I10 - Hypertension Status: Acute (3) Asthma ICD Code: J45.909 - Asthma Status: Acute (4) Chronic renal insufficiency ICD Code: N18.9 - Chronic renal insufficiency Status: Acute Assessment and Plan A/P acute encephalopathy- likely due to medication effect Patient with recent flulike symptoms. Had recently been on some cough suppressant with narcotic in it. Recently been treated with Keflex for urinary tract infection Had been taking lots of the cough suppressant with codeine recently patient. states that more than half the bottle disappeared within a 2 day. neurology consult appreciated. Hypertension resumed her home medications Anxiety continue on her home medications which may be playing a part of this Insomnia on chronic medications at night for sleep may have taken an extra ONE- NOT SURE Generalized weakness - consulted PT/OT. GERD continue on her home medications Anxiety depression continue on her Lexapro and Xanax Hyperlipidemia continue on her statin Chronic pain continue on her Lyrica and Naprosyn COPD continue on albuterol as needed we'll add duo nebs and Mucinex And incentive spirometry Continue on PPI for the GI prophylaxis DVT prophylaxis with SCDs and Lovenox Discharge Planning dc home when cleared by neurology. case management for [facility]. Estrellita Zazueta MD Sep 14, 2017 09:40
--- NOTE | 2017-09-14 09:41 | HHI.FF ---
Face to Face Verification Diagnosis: (1) Encephalopathy (2) Hypertension Physical Therapy Order: Evaluate and Treat Home Health Nursing Order: Signs/symptoms of disease process Nursing assessment with vital signs I have seen patient Nelda Sahu on 09/14/17. My clinical findings support the need for the requested home health care services because: Ltd mobility - disease progression I certify that my clinical findings support that this patient is homebound because: Unsteady gait/balance Estrellita Zazueta MD Sep 14, 2017 09:41
[2017-09-14] MEDS: PREGABALIN 25 MG CAP PO SCH (09:50)
[2017-09-14] MEDS: HYDROCHLOROTHIAZIDE 12.5 MG CAP PO SCH (09:50)
[2017-09-14] MEDS: NAPROXEN 250 MG TAB PO SCH (09:51)
[2017-09-14] MEDS: DOCUSATE SODIUM 50 MG/SENNA 8.6 MG TAB PO SCH (09:51)
[2017-09-14] MEDS: ASPIRIN 325 MG TAB PO SCH (09:51)
[2017-09-14] MEDS: PANTOPRAZOLE SOD 20 MG DELAYED RELEASE TAB PO SCH (09:51)
[2017-09-14] MEDS: ATENOLOL 50 MG TAB PO SCH (09:51)
[2017-09-14] MEDS: LOSARTAN 50 MG TAB PO SCH (09:51)
[2017-09-14] MEDS: ASPIRIN 81 MG CHEW TAB CHEW SCH (09:51)
[2017-09-14] MEDS: PRAVASTATIN SOD 40 MG TAB PO SCH (09:51)
[2017-09-14] MEDS: ESCITALOPRAM OXALATE 10 MG TAB PO SCH (09:51)
[2017-09-14] MEDS: MAGNESIUM OXIDE 400 MG TAB PO SCH (09:51)
[2017-09-14] MEDS: SODIUM CHLORIDE 0.9% FLUSH 10 ML FLUSH IV FLUSH SCH ×2 (09:52)
[2017-09-14] MEDS: HEPARIN SODIUM - SQ 10,000 UNITS/ML VIAL SQ SCH (09:54)
[2017-09-14] MEDS: guaiFENesin E.R. 600 MG TAB PO SCH (10:08)
[2017-09-14] MEDS ORDERED: BENZ100 PO (11:03)
--- NOTE | 2017-09-14 11:13 | HHI.DCPOC ---
Discharge Care Plan Diagnosis: (1) Prediabetes (2) Medication adverse effect (3) Encephalopathy Goals to Promote Your Health * To prevent worsening of your condition and complications * To maintain your health at the optimal level Directions to Meet Your Goals Strongly recommend discontinuation of cough medication with codeine. Your hemoglobin A1c level was 6.5 indicating possible prediabetes/diabetes. Recommend heart healthy diabetic diet high in fresh fruits, vegetables and lean protein. Recommend avoidance of fatty sugary foods. Take your medications as prescribed Follow your dietary instruction Follow activity as directed Keep your appointments as scheduled Take your immunizations and boosters as scheduled If your symptoms worsen call your PCP, if no PCP go to Urgent Care Center or Emergency Room Smoking is Dangerous to Your Health. Avoid second hand smoke Call the 24-hour hour crisis hotline for domestic abuse at [facility] Sep 14, 2017 11:13
== END 2017-09-14 13:01 | disposition home or self-care (01) ==
LOC: NEPC 12:02 → NEDA 15:05 → NEPHCDU 16:23
PROVIDERS: ADMIT Internal Medicine; ATTEND Internal Medicine
DX: G93.40 Encephalopathy, unspecified (principal); J44.9 Chronic obstructive pulmonary disease, unspecified; Z85.3 Personal history of malignant neoplasm of breast; E78.5 Hyperlipidemia, unspecified; K21.9 Gastro-esophageal reflux disease without esophagitis; N18.4 Chronic kidney disease, stage 4 (severe); I12.9 Hypertensive chronic kidney disease with stage 1 through stage 4 chronic kidney disease, or unspecified chronic kidney disease; G47.33 Obstructive sleep apnea (adult) (pediatric); Z79.899 Other long term (current) drug therapy; Z87.891 Personal history of nicotine dependence; G47.00 Insomnia, unspecified; F41.8 Other specified anxiety disorders; G89.29 Other chronic pain; R47.81 Slurred speech; R44.3 Hallucinations, unspecified; R73.03 Prediabetes; T50.905A Adverse effect of unspecified drugs, medicaments and biological substances, initial encounter; Z86.711 Personal history of pulmonary embolism; R00.1 Bradycardia, unspecified; R06.02 Shortness of breath; G45.8 Other transient cerebral ischemic attacks and related syndromes
CPT/HCPCS: 70450; 71045; 80053; 80061; 80307; 81001; 82140; 82550; 82948; 83036; 83605; 83735; 84100; 84132; 84439; 84443; 84484; 85025; 85610; 85730; 93005; 93306; 93880; 94150; 96125; 96360; 96361; 96372; 97162; 97167; 99285; G0378; G8987; G8988; J1644; J7030; J7040

== ENCOUNTER → 2018-01-12 | Outpatient (CLI) | payer MEDICARE, OTHER ==
[2018-01-12 14:18] LABS: GLUCOSE,FASTING 89 MG/DL (74-99)
[2018-01-12 14:47] LABS: TOTAL PROTEIN SPE 7.1 GM/DL (6.0-7.6)
[2018-01-12 21:52] LABS: HEMOGLOBIN A1C 5.8 % (4.3-6.0); HEMOGLOBIN A1a 1.3 %; HEMOGLOBIN A1b 0.9 %; HEMOGLOBIN Ao 83.5 %; HEMOGLOBIN F 1.2 %; HEMOGLOBIN LA1C 2.1 %; HEMOGLOBIN P3 5.9 %
[2018-01-13 21:32] LABS: ALPHA 1 GLOBULIN 0.18 GM/DL (0.11-0.29); ALPHA 2 GLOBULIN 1.02 GM/DL (0.22-1.00)
[2018-01-13 21:33] LABS: GAMMA GLOBULINS 0.89 GM/DL (0.50-1.39)
[2018-01-13 21:34] LABS: ALB/GLOB RATIO (SPE) 1.37 (1.39-2.23)
== END ==
LOC: PLAB 12:09
DX: R78.89 Finding of other specified substances, not normally found in blood (principal); R73.09 Other abnormal glucose; R94.6 Abnormal results of thyroid function studies; R77.9 Abnormality of plasma protein, unspecified; E53.8 Deficiency of other specified B group vitamins
CPT/HCPCS: 36415; 82607; 82947; 83036; 84165; 84439; 84443

== ENCOUNTER → 2018-01-29 | Outpatient (CLI) | payer MEDICARE, OTHER ==
[~2018-01-29] MED LIST changes: -ALBU1AER INH; +ALBUAER3 INH; +ASPI-516 CHEW; -ASPI81TA82 PO; -ATEN-102 PO; +ATEN50TA PO; +BENZ100 PO; -CEPH-460 PO; -HYDR12.56 PO; +HYDR12.57 PO; +LYRI50CA PO; -LYRI50CA2 PO; +MAGN400T2 PO; -MAGN500T4 PO; +MONT10TA2 PO; -MONT5CHW2 CHEW; -NAPR220T95 PO; -PERC10TA27 PO; -SIMV20 PO; +SIMV20TA PO; -ZOLP10TA3 PO
[2018-01-29 14:11] LABS: AUTOMATED NEUTROPHIL # 3.6 TH/MM3 (1.8-7.7); BASOPHIL # 0.1 TH/MM3 (0-0.2); EOSINOPHIL # 0.2 TH/MM3 (0-0.4); EOSINOPHIL % 3.5 % (0.0-4.0); HEMATOCRIT 40.6 % (35.0-46.0); HEMOGLOBIN 13.2 GM/DL (11.6-15.3); LYMPH % 11.9 % (9.0-44.0); LYMPHOCYTE # 0.6 TH/MM3 (1.0-4.8); MEAN CELL VOLUME 94.1 FL (80.0-100.0); MEAN CORPUSCULAR HEMOGLOBIN 30.5 PG (27.0-34.0); MEAN CORPUSCULAR HGB CONC 32.4 % (32.0-36.0); MONO % 9.8 % (0.0-8.0); MONOCYTE # 0.5 TH/MM3 (0-0.9); NEUT % 73.8 % (16.0-70.0); PLATELET COUNT 225 TH/MM3 (150-450); RED BLOOD COUNT 4.32 MIL/MM3 (4.00-5.30); RED CELL DISTRIBUTION WIDTH 14.6 % (11.6-17.2); WHITE BLOOD COUNT 4.9 TH/MM3 (4.0-11.0)
[2018-01-29 14:15] LABS: ALBUMIN 3.7 GM/DL (3.4-5.0); AST (GOT) 19 U/L (15-37); BICARBONATE 28.9 MEQ/L (21.0-32.0); BLOOD UREA NITROGEN 28 MG/DL (7-18); CHLORIDE 103 MEQ/L (98-107); CREATININE 1.15 MG/DL (0.50-1.00); GLOMERULAR FILTRATION RATE 46 ML/MIN (>89); GLUCOSE,FASTING 97 MG/DL (74-99); SODIUM (NA) 139 MEQ/L (136-145)
[2018-01-29 14:16] LABS: ALT (GPT) 21 U/L (10-53); CHOLESTEROL 115 MG/DL (120-200); TRIGLYCERIDES 119 MG/DL (42-150)
[2018-01-29 14:18] LABS: ALKALINE PHOSPHATASE 74 U/L (45-117); CHOLESTEROL/ HDL RATIO 2.52 RATIO; HDL CHOLESTEROL 45.6 MG/DL (40.0-60.0); LDL CHOLESTEROL 46 MG/DL (0-99); LDL CHOLESTEROL DIRECT 68 MG/DL (0-99); TOTAL BILIRUBIN ADULT 0.6 MG/DL (0.2-1.0); TOTAL PROTEIN 7.3 GM/DL (6.4-8.2)
[2018-01-29 15:24] LABS: FREE T4 1.01 NG/DL (0.76-1.46)
== END ==
LOC: PLAB 10:58
PROVIDERS: ATTEND Specialist
DX: R94.6 Abnormal results of thyroid function studies (principal); E53.8 Deficiency of other specified B group vitamins; R76.8 Other specified abnormal immunological findings in serum; N18.3 Chronic kidney disease, stage 3 (moderate); E78.5 Hyperlipidemia, unspecified
CPT/HCPCS: 36415; 80053; 80061; 82306; 82607; 83721; 83970; 84439; 84443; 85025; 87899

== ENCOUNTER 2018-10-22 23:40 | Observation (INO) ==
--- NOTE | 2018-10-23 00:04 | ED ---
HPI General Chief complaint: Hypertension Stated complaint: Weakness Time Seen by Provider: 10/22/18 23:59 Source: patient and EMS Mode of arrival: EMS Limitations: no limitations History of Present Illness HPI narrative: 78 F c/o chest tightness and dyspnea, starting suddenly after insufflating Afrin nasal spray approx three hours prior to ED arrival due to nasal congestion. bp at home was 220/120. chest tightness abated somewhat prior to ems arrival however in ed dyspnea is reported to be persistent. currently pt is using sudafed daily along with nasal spray due to allergies. she reports the carpets, cats and dogs may exacerbate allergies in addition to seasonal environmental allergies. Related Data Home Medications Medication Instructions Recorded Confirmed atenolol 75 mg PO BID 10/22/18 10/22/18 losartan [Cozaar] 50 mg PO DAILY 10/22/18 10/22/18 Allergies Allergy/AdvReac Type Severity Reaction Status Date / Time atorvastatin Allergy Severe MUSCLE Unverified 09/12/17 12:12 ACHES codeine Allergy Severe itching Unverified 09/12/17 12:12 morphine Allergy Intermediate HALLUCINATI Unverified 09/12/17 12:12 ON Sulfa (Sulfonamide Allergy Intermediate LIP Unverified 09/12/17 12:12 Antibiotics) SWELLING levofloxacin AdvReac Severe Restlessnes Unverified 09/12/17 12:12 s Review of Systems ROS: all other systems reviewed are negative [facility] Medical History Medical History HTN (hypertension) (Acute) Peritonitis (Acute) Surgical History Surgical History History of colostomy reversal (Acute) Social History Social History Substance History: No History of Abuse Second Hand Smoke Exposure: No Smoking Status: Former smoker How Often Do You Have a Drink Containing Alcohol: 4 or more times a week Recent Out of Country Travel within the Last 8 Weeks: No Immunization History Tetanus Immunization: <5 Years Tetanus Immunization Year if Known: 2019 Exam Narrative Exam Narrative: GENERAL: 78 yo F, WNWD, mild distress, pleasant SKIN: Focused skin assessment warm/dry. HEAD: Atraumatic. Normocephalic. EYES: Pupils equal and round. No scleral icterus. No injection or drainage. ENT: No nasal bleeding or discharge. Mucous membranes pink and moist. NECK: Trachea midline. No JVD. CARDIOVASCULAR: Regular rate and rhythm. No murmur appreciated. RESPIRATORY: No accessory muscle use. Clear to auscultation. Breath sounds equal bilaterally. GASTROINTESTINAL: Abdomen soft, non-tender, nondistended. Hepatic and splenic margins not palpable. MUSCULOSKELETAL: No obvious deformities. No clubbing. No cyanosis. No edema. NEUROLOGICAL: Awake and alert. No obvious cranial nerve deficits. Motor grossly within normal limits. Normal speech. PSYCHIATRIC: Appropriate mood and affect; insight and judgment normal. Course Initial Documented Vital Signs Temperature 98.0 F 10/22/18 23:49 Pulse Rate 69 10/22/18 23:49 Respiratory Rate 15 10/22/18 23:49 Blood Pressure 221/103 H 10/22/18 23:49 Pulse Oximetry 95 10/22/18 23:49 Last Documented Vital Signs Temperature 98.0 F 10/22/18 23:49 Pulse Rate 60 10/23/18 01:33 Respiratory Rate 14 10/23/18 01:33 Blood Pressure 134/67 10/23/18 01:33 Pulse Oximetry 99 10/23/18 01:33 Medical Decision Making MDM Narrative Medical decision making narrative: CBC normal BUN/Cr 42/1.08 essentially stable Tn < 0.02 BNP 390 CXR no dense consolidation, no pulmonary edema EKG sinus, rate 64, normal axis/intervals Pt with dyspnea, chest tightness and hypertension SL nitro given with BP down to 134/67 Pt reports resolution of chest tightness with BP improvement Mild persistent shortness of breath reported The ambulated in the ED and upon return to the bed O2 sat on RA was 86% and mild tachypnea reported; pulse remained in 60s Qa Specialist is Dr Sampson Pt denies hx CHF Board Handler is Dr Yang Call to [facility] at 0200AM. d/w Dr Ascencio at 215AM Medical Screen Exam Complete: Yes Emergency Medical Condition: Yes Lab Data Result diagrams: 10/23/18 00:41 10/23/18 00:41 Lab Results 10/23/18 10/23/18 10/23/18 Range/Units 00:41 00:41 00:41 WBC 7.3 (4.0-11.0) th/mm3 RBC 4.17 (4.00-5.30) mil/mm3 Hgb 13.3 (11.6-15.3) gm/dL Hct 39.6 (35.0-46.0) % MCV 94.9 (80.0-100.0) fL MCH 32.0 (27.0-34.0) pg MCHC 33.7 (32.0-36.0) % RDW 15.3 (11.6-17.2) % Plt Count 228 (150-450) th/mm3 MPV 10.0 (7.0-11.0) fL Neut % (Auto) 77.5 H (16.0-70.0) % Lymph % (Auto) 8.8 L (9.0-44.0) % [place] % (Auto) 8.6 H (0.0-8.0) % Eos % (Auto) 4.3 H (0.0-4.0) % Baso % (Auto) 0.8 (0.0-2.0) % Neut # (Auto) 5.6 (1.8-7.7) th/mm3 Lymph # (Auto) 0.6 L (1.0-4.8) th/mm3 [place] # (Auto) 0.6 (0.0-0.9) th/mm3 Eos # (Auto) 0.3 (0.0-0.4) th/mm3 Baso # (Auto) 0.1 (0.0-0.2) th/mm3 WBC Differential . Differential Comment Auto diff final Sodium 140 (136-145) meq/L Potassium 4.2 (3.5-5.1) meq/L Chloride 104 (98-107) meq/L Carbon Dioxide 30.0 (21.0-32.0) meq/L Anion Gap 6 (5-15) meq/L BUN 42 H (7-18) mg/dL Creatinine 1.08 H (0.50-1.00) mg/dL Estimated GFR 49 L (>89) mL/min Random Glucose 105 (74-106) mg/dL Calcium 8.1 L (8.5-10.1) mg/dL Magnesium 2.0 (1.5-2.5) mg/dL Total Bilirubin 0.3 (0.2-1.0) mg/dL AST 32 (15-37) U/L ALT 24 (10-53) U/L Alkaline Phosphatase 62 (45-117) U/L Troponin I Less than 0.02 L (0.02-0.05) ng/mL B-Natriuretic Peptide 390 H (0-100) pg/mL Total Protein 7.1 (6.4-8.2) g/dL Albumin 3.5 (3.4-5.0) g/dL Imaging Data Radiologist's impression: Chest X-Ray 10/23/18 00:01 CONCLUSION: Stable chest appearance Discharge Plan Discharge Disposition Patient Disposition: ED Admit(ED Internal Use Only) Discharge Order Discharge Orders: ED Use Only Admit Order (Routine); Ordered 10/23/18 Ordered By: [facility] Physicians Team ED Provider: Ren Seo Primary Care Provider: Rigo Fierro Attending Provider: Luanne Ascencio Status ED Status: Admitted Observation Patient
--- NOTE | 2018-10-23 00:38 | XR ---
EXAM DATE: 10/23/2018 12:29 AM EST AGE/SEX: 78 years / Female INDICATIONS: Increased blood pressure. CLINICAL DATA: This is the patient's initial encounter. Patient reports that signs and symptoms have been present for 1 day and indicates a pain score of 0/10. MEDICAL/SURGICAL HISTORY: Hypertension. . Spinal cord stimulator. COMPARISON: [facility] [place]ST SING[place], 09/12/2017. . FINDINGS: Mild patchy interstitial prominence similar to prior. No evidence of alveolar consolidation or signif icant effusion. Cardiac contours are unchanged. Thoracic stimulator apparatus present. CONCLUSION: Stable chest appearance Electronically signed by: Clyde Sal MD Board Certified Radiologist 10/23/2018 12:37 AM EST
[2018-10-23 00:56] LABS: Baso # (Auto) 0.1 th/mm3 (0.0-0.2); Baso % (Auto) 0.8 % (0.0-2.0); Eos # (Auto) 0.3 th/mm3 (0.0-0.4); Eos % (Auto) 4.3 % (0.0-4.0); Hematocrit 39.6 % (35.0-46.0); Hemoglobin 13.3 gm/dL (11.6-15.3); Lymph # (Auto) 0.6 th/mm3 (1.0-4.8); Lymph % (Auto) 8.8 % (9.0-44.0); Mean Corpuscular HGB Conc 33.7 % (32.0-36.0); Mean Corpuscular Volume 94.9 fL (80.0-100.0); Mono # (Auto) 0.6 th/mm3 (0.0-0.9); Mono % (Auto) 8.6 % (0.0-8.0); Neut # (Auto) 5.6 th/mm3 (1.8-7.7); Neut % (Auto) 77.5 % (16.0-70.0); Platelet Count 228 th/mm3 (150-450); Red Blood Count 4.17 mil/mm3 (4.00-5.30); Red Cell Distribution Width 15.3 % (11.6-17.2); White Blood Count 7.3 th/mm3 (4.0-11.0)
[2018-10-23 01:25] LABS: Alkaline Phosphatase 62 U/L (45-117); Total Protein 7.1 g/dL (6.4-8.2)
[2018-10-23 01:27] LABS: Alanine Aminotransferase 24 U/L (10-53); Albumin 3.5 g/dL (3.4-5.0); Anion Gap 6 meq/L (5-15); Aspartate Aminotransferase 32 U/L (15-37); Blood Urea Nitrogen 42 mg/dL (7-18); Calcium 8.1 mg/dL (8.5-10.1); Chloride 104 meq/L (98-107); Glomerular Filtration Rate 49 mL/min (>89); Glucose,Random 105 mg/dL (74-106); Potassium 4.2 meq/L (3.5-5.1); Sodium 140 meq/L (136-145)
--- NOTE | 2018-10-23 02:58 | CT ---
EXAM DATE: 10/23/2018 2:51 AM EST AGE/SEX: 78 years / Female INDICATIONS: Chest pain, dizziness. CLINICAL DATA: This is the patient's initial encounter. Patient reports that signs and symptoms have been present for 1 day and indicates a pain score of 6/10. MEDICAL/SURGICAL HISTORY: Hypertension. Fusion, lumbar. Spinal stimulator. RADIATION DOSE: 9.16 CTDI (mGy) COMPARISON: [facility], CT CHEST W/O CONTRAST, 10/17/2017. . TECHNIQUE: Volumetric scanning was performed using a multi-row detector CT scanner during bolus infu tam of 75 ml Omnipaque 350 (iohexol) nonionic water-soluble contrast as a single exam dose. The maryann a was post processed with a variety of visualization algorithms including full volume maximum intensi ty projection and sliding thin slab reformation. Using automated exposure control and adjustment of the mA and/or kV according to patient size, radiation dose was kept as low as reasonably achievable t o obtain optimal diagnostic quality images. DICOM format image data is available electronically for review and comparison. FINDINGS: Pulmonary Arteries: No filling defects are seen in the pulmonary arteries out to the subsegmental ve ssels. The left and right pulmonary arteries are normal in diameter. Lung: Minimal streaky basilar parenchymal opacity, right worse than left. This may be scarring or at electasis. Effusion: None. Mediastinum: No evidence of mediastinal or hilar adenopathy. Other: The axilla is unremarkable. CONCLUSION: This study is negative for pulmonary embolism. Electronically signed by: Clyde Sal MD Board Certified Radiologist 10/23/2018 2:57 AM EST
[2018-10-23] MEDS ORDERED: Acetaminophen 325 MG Tablet PO PRN ×2 (03:38→09:53)
[2018-10-23] MEDS ORDERED: Bisacodyl 10 MG Supp RECTAL PRN (03:38)
[2018-10-23] MEDS ORDERED: Heparin - SQ 10,000 UNITS/ML Vial SQ SCH (03:45)
--- NOTE | 2018-10-23 03:45 | P.HPIM ---
History of Present Illness Primary Care Physician: Rigo Fierro MD 78-year-old female with past medical history significant for recently diagnosed asthma, hypertension and hyperlipidemia presents to the emergency department for evaluation of shortness of breath. Patient reports she has been congested recently and took a Zyrtec and then used her Afrin nasal spray. Immediately following, she states that she felt strange had chest pain that extended across her chest and was mild. The chest pain resolved quickly. EMS was called and the patient was brought to the emergency department for further evaluation. Her blood pressure in the home was 225/76. After ED workup the patient was walked around the emergency department and had a desaturation event to 88% on room air. She denies any cough. No fever/chills. No abdominal pain. No nausea/vomiting/diarrhea. No focal neurologic deficits. Review of Systems Review of Systems: all other systems reviewed are negative [facility] Medical History Medical History Asthma (Acute) HTN (hypertension) (Acute) Hyperlipidemia (Acute) Surgical History Surgical History History of colostomy reversal (Acute) Family History Family History Other Diabetes mellitus Lung cancer Social History Social History Substance History: No History of Abuse Second Hand Smoke Exposure: No Smoking Status: Former smoker How Often Do You Have a Drink Containing Alcohol: 4 or more times a week Recent Out of Country Travel within the Last 8 Weeks: No Immunization History Tetanus Immunization: <5 Years Tetanus Immunization Year if Known: 2019 Medications and Allergies Allergies Allergy/AdvReac Type Severity Reaction Status Date / Time atorvastatin Allergy Severe MUSCLE Unverified 09/12/17 12:12 ACHES codeine Allergy Severe itching Unverified 09/12/17 12:12 morphine Allergy Intermediate HALLUCINATI Unverified 09/12/17 12:12 ON Sulfa (Sulfonamide Allergy Intermediate LIP Unverified 09/12/17 12:12 Antibiotics) SWELLING levofloxacin AdvReac Severe Restlessnes Unverified 09/12/17 12:12 s Home Medications Medication Instructions Recorded Confirmed Type atenolol 75 mg PO BID 10/22/18 10/22/18 History losartan [Cozaar] 50 mg PO DAILY 10/22/18 10/22/18 History Active Medications: Active Medications Acetaminophen (Tylenol) 650 mg PO Q4H PRN PRN Reason: Temp > 100.4 Al Hydroxide/Mg Hydroxide (Milk Of Magnesia Liq) 30 ml PO Q12H PRN PRN Reason: Mild Constipation Albuterol (Albuterol Neb (Prn)) 2.5 mg NEB Q4HR NEB PRN PRN Reason: SOB/WHeezing Bisacodyl (Dulcolax Supp) 10 mg RECTAL DAILY PRN PRN Reason: SEVERE CONSITIPATION Heparin Sodium (Porcine) (Heparin Inj) 5,000 units SQ Q12H [place] Lactulose (Lactulose Liq) 30 ml PO DAILY PRN PRN Reason: SEVERE CONSITIPATION Ondansetron HCl (Zofran Inj) 4 mg IV.PUSH Q6H PRN PRN Reason: NAUSEA OR VOMITING Senna/Docusate Sodium (Latosha-Colace) 1 tab PO BID [facility] Sennosides (Senokot) 17.2 mg PO Q12H PRN PRN Reason: Moderate Constipation Sodium Chloride (Ns Flush) 2 ml IV.FLUSH UNSCH PRN PRN Reason: FLUSH AFTER USING IV ACCESS Sodium Chloride (Ns Flush) 2 ml IV.FLUSH PRN PRN PRN Reason: FLUSH AFTER USING IV ACCESS Sodium Chloride (Ns Flush) 2 ml IV.FLUSH BID [facility] Physical Exam Vital signs: Vital Signs 10/22/18 23:49 10/23/18 00:55 10/23/18 01:04 Temperature 98.0 F Pulse Rate 69 63 66 Respiratory Rate 15 15 15 Blood Pressure 221/103 H 175/80 H 161/80 H Pulse Oximetry 95 97 99 10/23/18 01:33 Temperature Pulse Rate 60 Respiratory Rate 14 Blood Pressure 134/67 Pulse Oximetry 99 Intake & Output 10/22/18 10/22/18 10/23/18 06:59 18:59 06:59 Weight 77.111 kg Narrative: Gen.: No acute distress Head: Normocephalic. Atraumatic. EENT: Pupils equal round and reactive to light. Nose without drainage. Airway intact. Throat without injection. Cardiovascular: Regular rate and rhythm. No murmurs, rubs or gallops. Respiratory: Bilateral expiratory wheezes. Abdomen: Soft, nontender, nondistended. No peritoneal signs. Musculoskeletal: No gross deformities. No edema. Skin: No obvious rashes or erythema. Neuro: Sensory and motor grossly intact. Cranial nerves II through XII grossly intact. Results Labs CBC & Chem 7: 10/23/18 00:41 10/23/18 00:41 Imaging Impressions Chest X-Ray 10/23/18 00:01 CONCLUSION: Stable chest appearance Chest CTA 10/23/18 02:16 CONCLUSION: This study is negative for pulmonary embolism. Caprini VTE Risk Assessment Caprini VTE Risk Assessment: Moderate/High Risk (score >= 2) Caprini Risk Assessment Model: Point Value = 1 Point Value = 2 Point Value = 3 Point Value = 5 Age 41-60 Minor surgery BMI > 25 kg/m2 Swollen legs Varicose veins or History of unexplained or recurrent spontaneous Oral contraceptives or hormone replacement Sepsis (< 1 month) Serious lung disease, including pneumonia (< 1 month) Abnormal pulmonary function Acute myocardial infarction Congestive heart failure (< 1 month) History of inflammatory bowel disease Medical patient at bed rest Age 61-74 Arthroscopic surgery Major open surgery (> 45 min) Laparoscopic surgery (> 45 min) Malignancy Confined to bed (> 72 hours) Immobilizing plaster cast Central venous access Age >= 75 History of VTE Family history of VTE Factor V Leiden Prothrombin [id number] Lupus anticoagulant Anticardiolipin antibodies Elevated serum homocysteine Heparin-induced thrombocytopenia Other congenital or acquired thrombophilia Stroke (< 1 month) Elective arthroplasty Hip, pelvis, or leg fracture Acute spinal cord injury (< 1 month) Prophylaxis Regimen: Total Risk Factor Score Risk Level Prophylaxis Regimen 0-1 Low Early ambulation 2 Moderate Order ONE of the following: *Sequential Compression Device (SCD) *Heparin 5000 units SQ BID 3-4 Higher Order ONE of the following medications: *Heparin 5000 units SQ TID *Enoxaparin/Lovenox 40 mg SQ daily (WT < 150 kg, CrCl > 30 mL/min) *Enoxaparin/Lovenox 30 mg SQ daily (WT < 150 kg, CrCl > 10-29 mL/min) *Enoxaparin/Lovenox 30 mg SQ BID (WT < 150 kg, CrCl > 30 mL/min) AND/OR *Sequential Compression Device (SCD) 5 or more Highest Order ONE of the following medications: *Heparin 5000 units SQ TID (Preferred with Epidurals) *Enoxaparin/Lovenox 40 mg SQ daily (WT < 150 kg, CrCl > 30 mL/min) *Enoxaparin/Lovenox 30 mg SQ daily (WT < 150 kg, CrCl > 10-29 mL/min) *Enoxaparin/Lovenox 30 mg SQ BID (WT < 150 kg, CrCl > 30 mL/min) AND *Sequential Compression Device (SCD) Assessment and Plan Plan Assessment/plan: 1. Shortness of breath Chest CTA negative for PE or acute process Patient recently had a full evaluation with a upscale security officer who stated she did not have COPD but did have mild asthma Albuterol as needed 2. Hypertensive urgency May be secondary to medication effect Resolved Continue home antihypertensives Monitor 3. Hypertension/hyperlipidemia Continue home medications FEN Regular diet Electrolytes: Monitor and replete as needed Heparin
[2018-10-23 03:53] VITALS: RESP 16
[2018-10-23] MEDS ORDERED: hydrALAZINE HCl Inj 20 MG/ML Vial IV.PUSH PRN (07:50)
[2018-10-23 08:30] VITALS: TEMP 97.7
[2018-10-23] MEDS ORDERED: Atenolol 25 MG Tablet PO SCH (09:00)
[2018-10-23] MEDS ORDERED: Senna/Docusate Sodium 8.6/50 MG Tablet PO SCH (09:00)
[2018-10-23 12:20] VITALS: BP 129/60; PULSE 52; O2SAT 95
--- NOTE | 2018-10-23 14:55 | ECG ---
Date Performed: 10/23/2018 Time Performed: 00:00:09 PTAGE: 78 years EKG: Sinus rhythm NORMAL ECG Since the previous tracing, no significant change noted NO PREVIOUS TRACING DOCTOR: Jennifer Wen Interpretating Date/Time 10/23/2018 14:47:44
--- NOTE | 2018-10-23 18:10 | P.PNIM ---
Subjective Interval history: Follow-up visit shortness of breath Patient seen and examined while resting in bed. She reports resolution in her shortness of breath. She expresses that it may have been secondary to anxiety. Patient states she has recently undergone a pulmonary function test that was negative for COPD. She was told that she has asthma. Patient also reports fluctuations in her blood pressure recently. She was educated on monitoring her blood pressure readings and recording them for her PCP to review. Patient verbalized understanding. CT angio chest with findings of scarring vs atelectasis. Discussed findings with patient and she states she has been told in the past that she has scarring in her lungs. Patient denies chest pain, shortness of breath, dyspnea with exertion, orthopnea, cough, fevers or chills. No lower extremity edema or pain. Physical Exam Vital signs: Vital Signs 10/22/18 23:49 10/23/18 00:55 10/23/18 01:04 Temperature 98.0 F Pulse Rate 69 63 66 Respiratory Rate 15 15 15 Blood Pressure 221/103 H 175/80 H 161/80 H Pulse Oximetry 95 97 99 10/23/18 01:33 10/23/18 03:51 10/23/18 08:00 Temperature 98.5 F 97.7 F Pulse Rate 60 63 53 L Respiratory Rate 14 16 16 Blood Pressure 134/67 190/86 H 134/62 Pulse Oximetry 99 97 94 L 10/23/18 08:26 10/23/18 12:00 Temperature Pulse Rate 52 L Respiratory Rate 16 Blood Pressure 129/60 Pulse Oximetry 97 95 Intake & Output 10/22/18 10/23/18 10/23/18 18:59 06:59 18:59 Intake Total 212 / 212 Output Total Balance / 211 Weight 77.111 kg Intake: Oral / 212 Output: Urine Other: # Voids 1 Weight On Admission 77.111 kg Narrative: Gen.: No acute distress Head: Normocephalic. Atraumatic. EENT: Pupils equal round and reactive to light. Nose without drainage. Airway intact. Throat without injection. Cardiovascular: Regular rate and rhythm. No murmurs, rubs or gallops. Respiratory: Bilateral expiratory wheezes. Abdomen: Soft, nontender, nondistended. No peritoneal signs. Musculoskeletal: No gross deformities. No edema. Skin: No obvious rashes or erythema. Neuro: Sensory and motor grossly intact. Cranial nerves II through XII grossly intact. Results Labs CBC & Chem 7: 10/23/18 00:41 10/23/18 00:41 Imaging Imaging: Impressions Chest X-Ray 10/23/18 00:01 CONCLUSION: Stable chest appearance Chest CTA 10/23/18 02:16 CONCLUSION: This study is negative for pulmonary embolism. Assessment and Plan Plan 78-year-old female with past medical history significant for recently diagnosed asthma, hypertension and hyperlipidemia presented to the emergency department for evaluation of shortness of breath. Shortness of breath Chest CTA negative for PE or acute process Patient recently had a full evaluation with a plant reliability engineer who stated she did not have COPD but did have mild asthma Acute kidney injury Improved Hypertensive urgency May be secondary to medication effect Resolved Continue home antihypertensives Hypertension/hyperlipidemia -pt to resume home meds Discharge patient: home Condition on discharge: Improved Diet: Heart Healthy Activity: ad elmer Rx written: none Follow-up with primary care physician in 1 week. Progress Note: Quality VTE Deep Vein Thrombosis/Pulmonary Embolism Present on Admission: No
== END 2018-10-23 15:29 | disposition home or self-care (01) ==
LOC: NEPE 23:40 → NEDA 23:40 → NEPGCP 10-23 03:50
PROVIDERS: ADMIT Family Medicine; ATTEND Family Medicine
DX: I16.0 Hypertensive urgency; R53.1 Weakness; J45.909 Unspecified asthma, uncomplicated; Z80.1 Family history of malignant neoplasm of trachea, bronchus and lung; Z83.3 Family history of diabetes mellitus; Z87.891 Personal history of nicotine dependence; Z88.2 Allergy status to sulfonamides; E78.5 Hyperlipidemia, unspecified; I10 Essential (primary) hypertension; R06.02 Shortness of breath; N17.9 Acute kidney failure, unspecified; Z88.5 Allergy status to narcotic agent
CPT/HCPCS: 71010; 71045; 71275; 80053; 83520; 83735; 83880; 84484; 85025; 90774; 90784; 93005; 96374; 99285; C8952; G0378; J1644; J2405; Q9967